=== PATIENT | female | born 1995 | race Caucasian/White ===

== ENCOUNTER 2016-07-14 17:00 | Emergency (ER) | payer MEDICAID, OTHER ==
[~2016-07-14 17:00] MED LIST: AUGM875T27 PO; CIPR500T89 PO; COLA100C PO; FLAG500T PO; PERC5TAB6 PO
[2016-07-14] MEDS ORDERED: AUGMENTIN 875 MG TAB As Ordered ONE (19:47)
[2016-07-14] MEDS ORDERED: TETRACAINE 0.5% OPHTH SOLN 4ML As Ordered ONE (19:47)
[2016-07-14] MEDS ORDERED: FLUORESCEIN OPHTH 1 MG STRIP As Ordered ONE (19:48)
--- NOTE | 2016-07-14 20:07 | EDDOCDS ---
Nurse's Notes [facility] Name: Renée Ponce Age: 20 yrs Sex: Female : 1995 Arrival Date: 07/14/2016 Time: 17:00 Bed I10 / 23 Private MD: Addison Cobb W Diagnosis: Scratched by cat-eight lower eye lid;Injury of conjunctiva and corneal abrasion without foreign body, right eye Presentation: 07/14 17:27 Presenting complaint: Patient states: Right eye irritation, scratched in eye by her dwg mothers cat just prior to arrival. Mechanism of Injury: Cat scratch. The patient denies any loss of vision. Adult Sepsis Screening: The patient does not have new or worsening altered mentation. Patient's respiratory rate is less than 22. Systolic blood pressure is greater than 100. Patient has a qSOFA score of 0- Negative Sepsis Screen. Suicide/Homicide risk assessment- the patient denies having any suicidal and/or homicidal ideations and does not present with any other emotional, behavioral or mental health complaints. Status: Patient is not a family services manager or dependent. Transition of care: patient was not received from another setting of care. 17:27 Acuity: CRESCENCIO Level 4 dw 17:27 Method Of Arrival: Walkin/Carried/[facility]std [facility] Triage Assessment: 17:29 General: Appears in no apparent distress. Pain: Pain currently is 5 out of 10 on a pain dwg scale. HIV screening NA for this visit Offered previously. 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 none - PMHx: none; - PSHx: Tonsillectomy; - Social history: Smoking status: Patient states was never smoker of tobacco. No barriers to communication noted, The patient speaks fluent Georgian. - Family history: Not pertinent. - : The pt / caregiver states he / she is not on anticoagulants. Home medication list is obtained from the patient. - Exposure Risk Screening:: None identified. - Tetanus status: unknown. Screenin:05 Screening information is obtained from the patient. Fall risk: No risks identified. dsf Assistance ADL's: requires no assistance with activities of daily living. Abuse/DV Screen: The patient / caregiver reports he/she is: not in a situation that causes fear, pain or injury. Nutritional screening: No deficits noted. Advance Directives: Currently, there is no health care proxy. home support is adequate. Assessment: 19:52 Adult Sepsis Screening: The patient does not have new or worsening altered mentation. dsf Patient's respiratory rate is less than 22. Systolic blood pressure is greater than 100. Patient has a qSOFA score of 0- Negative Sepsis Screen. General: Appears in no apparent distress, Behavior is appropriate for age, cooperative. Pain: Denies pain. Neurological: Level of Consciousness is awake, alert. EENT: Eyes clear. Sclera/Cornea are clear in right eye lower lid swollen. Respiratory: No deficits noted. Derm: Skin is pink, warm & dry. Vital Signs: 17:01 BP 121 / 73; Pulse 78; Resp 18 S; Temp 97.9(O); Pulse Ox 98% on R/A; Weight 62.6 kg gr2 (R); Height 5 ft. 5 in. (165.10 cm) (R); Pain 2/10; 17:01 Body Mass Index 22.96 (62.60 kg, 165.10 cm) gr2 Vitals: 17:01 Log In Time: July 14, 2016 at 17:01. gr2 ED Course: 17:00 Patient visited by Ever Holley. gr2 17:00 Patient moved to Waiting gr2 17:01 Addison Cobb is Private Physician. gr2 17:03 Patient visited by Ever Holley. gr2 17:03 Patient moved to Pre RCE gr2 17:29 Triage Initiated dwg 19:27 Patient moved to I1 23 sls1 19:36 [facility] le 19:38 Patient visited by Yamileth Gross FNP. le 19:38 Patient visited by Yamileth Gross FNP. le 19:53 Patient visited by Dejah Eckert RN. dsf 19:57 Chaparro Dixon is Referral Physician. le 20:05 No IV's were initiated during this patient's visit. No procedures done that require dsf assistance. 20:06 The patient / caregiver is instructed regarding the plan of care and ED course. dsf Administered Medications: 19:52 Drug: Tetracaine (PF) 2 drps [tetracaine HCl (PF) 0.5 % eye drops (2 drps)] Route: dsf Ophthalmic; Site: right eye; 19:52 Drug: Amoxicillin-Clavulanate 1 tabs [amoxicillin 875 mg-potassium clavulanate 125 mg dsf tablet (1 tabs)] Route: PO; Order Results: There are currently no results for this order. Outcome: 19:57 Discharge ordered by Provider. le 20:06 Discharge Assessment: Patient awake, alert and oriented x 3. No cognitive and/or dsf functional deficits noted. Patient verbalized understanding of disposition instructions. patient administered narcotics - no. The following High Risk Discharge criteria are identified: None. Discharged to home ambulatory. Condition: stable. Discharge instructions given to patient, Instructed on discharge instructions, follow up and referral plans. medication usage, Demonstrated understanding of instructions, medications, Pt was receptive of discharge instructions/ teaching. Prescriptions given X 1. No special radiology studies were completed. Property sent home with patient. 20:06 Patient left the ED. dsf Signatures: Junior Brizuela RN RN Yamileth Amaro FNP FNP le Fuller, DesireeRN RN Dolores Hernandez RN RN sls1 Ever Holley gr2 MTDEugenio
--- NOTE | 2016-07-14 20:07 | EDDOCDS ---
Physician Documentation [facility] Name: Renée Ponce Age: 20 yrs Sex: Female : 1995 Arrival Date: 07/14/2016 Time: 17:00 Bed I10 / 23 Private MD: Addison Cobb W Disposition: 07/14/16 19:57 Discharged to Home/Self Care. Impression: Scratched by cat - eight lower eye lid, Injury of conjunctiva and corneal abrasion without foreign body, right eye. - Condition is Stable. - Discharge Instructions: Corneal Abrasion. - Prescriptions for Augmentin 875- 125 mg Oral Tablet - take 1 tablet by ORAL route every 12 hours for 5 days; 10 tablet. - Medication Reconciliation, Local Pharmacy Hours form. - Follow up: Chaparro Dixon; When: As needed; Reason: Recheck today's complaints, Continuance of care. - Problem is new. - Symptoms have improved. - Notes: Return to the ED for any further concerns Historical: - Allergies: no known allergies; - Home Meds: 1. none - PMHx: none; - PSHx: Tonsillectomy; - Social history: Smoking status: Patient states was never smoker of tobacco. No barriers to communication noted, The patient speaks fluent Spanish. - Family history: Not pertinent. - : The pt / caregiver states he / she is not on anticoagulants. Home medication list is obtained from the patient. - Exposure Risk Screening:: None identified. - Tetanus status: unknown. 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 5 in. (165.10 cm) (R); Pain 2/10; 17:01 Body Mass Index 22.96 (62.60 kg, 165.10 cm) gr2 MDM: 19:39 Tetracaine (PF) Drops 0.5 % 2 drps Ophthalmic once ordered. le 19:39 Flouroscein strips to bedside ordered. le 19:39 Visual Acuity ordered. le 19:44 Amoxicillin-Clavulanate 875 mg 1 tabs PO once ordered. le Administered Medications: 19: Drug: Tetracaine (PF) 2 drps [tetracaine HCl (PF) 0.5 % eye drops (2 drps)] Route: dsf Ophthalmic; Site: right eye; : Drug: Amoxicillin-Clavulanate 1 tabs [amoxicillin 875 mg-potassium clavulanate 125 mg dsf tablet (1 tabs)] Route: PO; Signatures: Junior Brizuela RN RN dwg Westcott, Lisa, SEO EXECUTIVE SEO EXECUTIVE Dejah Corrigan RN RN dsf MTDD
--- NOTE | 2016-07-16 21:07 | EDDOCDS ---
Nurse's Notes [facility] Name: Renée Ponce Age: 20 yrs Sex: Female : 1995 Arrival Date: 07/14/2016 Time: 17:00 Bed I10 / 23 Private MD: Addison Cobb W Diagnosis: Scratched by cat-eight lower eye lid;Injury of conjunctiva and corneal abrasion without foreign body, right eye Presentation: 07/14 17:27 Presenting complaint: Patient states: Right eye irritation, scratched in eye by her dwg mothers cat just prior to arrival. Mechanism of Injury: Cat scratch. The patient denies any loss of vision. Adult Sepsis Screening: The patient does not have new or worsening altered mentation. Patient's respiratory rate is less than 22. Systolic blood pressure is greater than 100. Patient has a qSOFA score of 0- Negative Sepsis Screen. Suicide/Homicide risk assessment- the patient denies having any suicidal and/or homicidal ideations and does not present with any other emotional, behavioral or mental health complaints. Status: Patient is not a consumer services consultant or dependent. Transition of care: patient was not received from another setting of care. 17:27 Acuity: CRESCENCIO Level 4 dw 17:27 Method Of Arrival: Walkin/Carried/Asstd [facility] Triage Assessment: 17:29 General: Appears in no apparent distress. Pain: Pain currently is 5 out of 10 on a pain dwg scale. HIV screening NA for this visit Offered previously. 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 none - PMHx: none; - PSHx: Tonsillectomy; - Social history: Smoking status: Patient states was never smoker of tobacco. No barriers to communication noted, The patient speaks fluent Latvian. - Family history: Not pertinent. - : The pt / caregiver states he / she is not on anticoagulants. Home medication list is obtained from the patient. - Exposure Risk Screening:: None identified. - Tetanus status: unknown. Screenin:05 Screening information is obtained from the patient. Fall risk: No risks identified. dsf Assistance ADL's: requires no assistance with activities of daily living. Abuse/DV Screen: The patient / caregiver reports he/she is: not in a situation that causes fear, pain or injury. Nutritional screening: No deficits noted. Advance Directives: Currently, there is no health care proxy. home support is adequate. Assessment: 19:52 Adult Sepsis Screening: The patient does not have new or worsening altered mentation. dsf Patient's respiratory rate is less than 22. Systolic blood pressure is greater than 100. Patient has a qSOFA score of 0- Negative Sepsis Screen. General: Appears in no apparent distress, Behavior is appropriate for age, cooperative. Pain: Denies pain. Neurological: Level of Consciousness is awake, alert. EENT: Eyes clear. Sclera/Cornea are clear in right eye lower lid swollen. Respiratory: No deficits noted. Derm: Skin is pink, warm & dry. Vital Signs: 17:01 BP 121 / 73; Pulse 78; Resp 18 S; Temp 97.9(O); Pulse Ox 98% on R/A; Weight 62.6 kg gr2 (R); Height 5 ft. 5 in. (165.10 cm) (R); Pain 2/10; 17:01 Body Mass Index 22.96 (62.60 kg, 165.10 cm) gr2 Vitals: 17:01 Log In Time: July 14, 2016 at 17:01. gr2 ED Course: 17:00 Patient visited by Ever Holley. gr2 17:00 Patient moved to Waiting gr2 17:01 Addison Cobb is Private Physician. gr2 17:03 Patient visited by Ever Holley. gr2 17:03 Patient moved to Pre RCE gr2 17:29 Triage Initiated dwg 19:27 Patient moved to I10 23 sls1 19:36 [facility] le 19:38 Patient visited by Yamileth Gross FNP. le 19:38 Patient visited by Yamileth Gross FNP. le 19:53 Patient visited by Dejah Eckert RN. dsf 19:57 Chaparro Dixon is Referral Physician. le 20:05 No IV's were initiated during this patient's visit. No procedures done that require dsf assistance. 20:06 The patient / caregiver is instructed regarding the plan of care and ED course. dsf 20:07 [facility] Payment Agreement was scanned into [employer] and attached to record. hayden 07/15 11:05 T-Sheet-- Draft Copy was scanned into [employer] and attached to record. gb Administered Medications: 07/14 19:52 Drug: Tetracaine (PF) 2 drps [tetracaine HCl (PF) 0.5 % eye drops (2 drps)] Route: dsf Ophthalmic; Site: right eye; 19:52 Drug: Amoxicillin-Clavulanate 1 tabs [amoxicillin 875 mg-potassium clavulanate 125 mg dsf tablet (1 tabs)] Route: PO; Order Results: There are currently no results for this order. Outcome: 19:57 Discharge ordered by Provider. le 20:06 Discharge Assessment: Patient awake, alert and oriented x 3. No cognitive and/or dsf functional deficits noted. Patient verbalized understanding of disposition instructions. patient administered narcotics - no. The following High Risk Discharge criteria are identified: None. Discharged to home ambulatory. Condition: stable. Discharge instructions given to patient, Instructed on discharge instructions, follow up and referral plans. medication usage, Demonstrated understanding of instructions, medications, Pt was receptive of discharge instructions/ teaching. Prescriptions given X 1. No special radiology studies were completed. Property sent home with patient. 20:06 Patient left the ED. dsf Signatures: Junior Brizuela, RN RN dwg Shahana Solis, Reg Reg Yamileth Saldaña, Dejah Tyler RN RN Dolores Hernandez RN RN sls1 Ever Holley gr2 Mady Schultz [facility] Chart Complete MTDD
--- NOTE | 2016-07-16 21:07 | EDDOCDS ---
Physician Documentation [facility] Name: Renée Ponce Age: 20 yrs Sex: Female : 1995 Arrival Date: 07/14/2016 Time: 17:00 Bed I10 / 23 Private MD: Addison Cobb W Disposition: 07/14/16 19:57 Discharged to Home/Self Care. Impression: Scratched by cat - eight lower eye lid, Injury of conjunctiva and corneal abrasion without foreign body, right eye. - Condition is Stable. - Discharge Instructions: Corneal Abrasion. - Prescriptions for Augmentin 875- 125 mg Oral Tablet - take 1 tablet by ORAL route every 12 hours for 5 days; 10 tablet. - Medication Reconciliation, Local Pharmacy Hours form. - Follow up: Chaparro Dixon; When: As needed; Reason: Recheck today's complaints, Continuance of care. - Problem is new. - Symptoms have improved. - Notes: Return to the ED for any further concerns Historical: - Allergies: no known allergies; - Home Meds: 1. none - PMHx: none; - PSHx: Tonsillectomy; - Social history: Smoking status: Patient states was never smoker of tobacco. No barriers to communication noted, The patient speaks fluent Qatari. - Family history: Not pertinent. - : The pt / caregiver states he / she is not on anticoagulants. Home medication list is obtained from the patient. - Exposure Risk Screening:: None identified. - Tetanus status: unknown. 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 5 in. (165.10 cm) (R); Pain 2/10; 17:01 Body Mass Index 22.96 (62.60 kg, 165.10 cm) gr2 MDM: 19:39 Tetracaine (PF) Drops 0.5 % 2 drps Ophthalmic once ordered. le 19:39 Flouroscein strips to bedside ordered. le 19:39 Visual Acuity ordered. le 19:44 Amoxicillin-Clavulanate 875 mg 1 tabs PO once ordered. le 20:07 [facility] Payment Agreement was scanned into [employer] and attached to record. gjjudy 20: Financial registration complete. gjjudy 07/15 11:05 T-Sheet-- Draft Copy was scanned into [employer] and attached to record. gb Administered Medications: 07/14 19:52 Drug: Tetracaine (PF) 2 drps [tetracaine HCl (PF) 0.5 % eye drops (2 drps)] Route: dsf Ophthalmic; Site: right eye; 19:52 Drug: Amoxicillin-Clavulanate 1 tabs [amoxicillin 875 mg-potassium clavulanate 125 mg dsf tablet (1 tabs)] Route: PO; Signatures: Junior Brizuela, RN RN dwShahana Cool, Reg Reg Yamileth Saldaña, Dejah Tyler RN RN Mady Daugherty The chart was reviewed and I authenticate all verbal orders and agree with the evaluation and treatment provided.Attachments: : [facility] Payment Agreement [facility] 07/15 11:05 T-Sheet-- Draft Copy gb Chart Complete MTDD
--- NOTE | 2016-07-16 21:07 | EDDOCDS ---
Physician Documentation [facility] Name: Renée Ponce Age: 20 yrs Sex: Female : 1995 Arrival Date: 07/14/2016 Time: 17:00 Bed I10 / 23 Private MD: Addison Cobb W Disposition: 07/14/16 19:57 Discharged to Home/Self Care. Impression: Scratched by cat - eight lower eye lid, Injury of conjunctiva and corneal abrasion without foreign body, right eye. - Condition is Stable. - Discharge Instructions: Corneal Abrasion. - Prescriptions for Augmentin 875- 125 mg Oral Tablet - take 1 tablet by ORAL route every 12 hours for 5 days; 10 tablet. - Medication Reconciliation, Local Pharmacy Hours form. - Follow up: Chaparro Dixon; When: As needed; Reason: Recheck today's complaints, Continuance of care. - Problem is new. - Symptoms have improved. - Notes: Return to the ED for any further concerns Historical: - Allergies: no known allergies; - Home Meds: 1. none - PMHx: none; - PSHx: Tonsillectomy; - Social history: Smoking status: Patient states was never smoker of tobacco. No barriers to communication noted, The patient speaks fluent Moroccan. - Family history: Not pertinent. - : The pt / caregiver states he / she is not on anticoagulants. Home medication list is obtained from the patient. - Exposure Risk Screening:: None identified. - Tetanus status: unknown. 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 5 in. (165.10 cm) (R); Pain 2/10; 17:01 Body Mass Index 22.96 (62.60 kg, 165.10 cm) gr2 MDM: 19:39 Tetracaine (PF) Drops 0.5 % 2 drps Ophthalmic once ordered. le 19:39 Flouroscein strips to bedside ordered. le 19:39 Visual Acuity ordered. le 19:44 Amoxicillin-Clavulanate 875 mg 1 tabs PO once ordered. le 20:07 [facility] Payment Agreement was scanned into [employer] and attached to record. gjjudy 20: Financial registration complete. gjjudy 07/15 11:05 T-Sheet-- Draft Copy was scanned into [employer] and attached to record. gb Administered Medications: 07/14 19:52 Drug: Tetracaine (PF) 2 drps [tetracaine HCl (PF) 0.5 % eye drops (2 drps)] Route: dsf Ophthalmic; Site: right eye; 19:52 Drug: Amoxicillin-Clavulanate 1 tabs [amoxicillin 875 mg-potassium clavulanate 125 mg dsf tablet (1 tabs)] Route: PO; Signatures: Junior Brizuela, RN RN dwShahana Cool, Reg Reg Yamileth Saldaña, Dejah Tyler RN RN Mady Daugherty The chart was reviewed and I authenticate all verbal orders and agree with the evaluation and treatment provided.Attachments: : [facility] Payment Agreement [facility] 07/15 11:05 T-Sheet-- Draft Copy gb Chart Complete MTDD
== END 2016-07-14 20:06 | disposition home or self-care (01) ==
LOC: M ED 17:00
DX: S05.01XA Injury of conjunctiva and corneal abrasion without foreign body, right eye, initial encounter (principal); W55.03XA Scratched by cat, initial encounter; Y92.019 Unspecified place in single-family (private) house as the place of occurrence of the external cause; Y93.89 Activity, other specified; Y99.8 Other external cause status

== ENCOUNTER → 2016-09-17 | Outpatient (CLI) | payer OTHER, MEDICAID | LOC: M LAB 16:16 → M LABNEURO 16:16 | PROVIDERS: ATTEND Student in an Organized Health Care Education/Training Program | DX: R63.4 Abnormal weight loss (principal) ==

== ENCOUNTER → 2016-11-17 | Outpatient (REF) | payer OTHER, MEDICAID ==
[~2016-11-17] MED LIST changes: -COLA100C PO; +COLA100C3 PO
== END ==
LOC: M LAB REF 11:19
PROVIDERS: ATTEND Physician Assistant Medical
DX: J02.9 Acute pharyngitis, unspecified (principal)

== ENCOUNTER 2016-12-26 19:28 | Emergency (ER) | payer MEDICAID, OTHER ==
[~2016-12-26] VITALS: Ht 165.1 cm; Wt 56.6 kg
[~2016-12-26 19:28] MED LIST changes: -AUGM875T27 PO; +AUGM875T28 PO; +CIPR-249 PO; -CIPR500T89 PO; -COLA100C3 PO; +COLA100C5 PO; +PERC5TAB12 PO; -PERC5TAB6 PO
[2016-12-26] MEDS ORDERED: KETOROLAC 60 MG/2 ML VIAL (J1885) IM ONE (20:00)
--- NOTE | 2016-12-26 20:33 | REP ---
Clinical: Lower back pain . Technique: AP, lateral, bilateral oblique, and coned-down views. Findings: Alignment and lordosis is maintained. The vertebral bodies including transverse process and spinous processes are intact and normal. There is no evidence for acute fracture / compression injury or subluxation. No evidence for spondylolysis or spondylolisthesis. No significant degenerative change is noted. Impression: Normal lumbosacral spine radiograph series. Signed by Rk Rizo MD 12/26/2016 08:24 P
[2016-12-26 20:51] VITALS: BP 117/74
[2016-12-26] MEDS ORDERED: CYCL10TA PO (21:03)
[2016-12-26] MEDS ORDERED: NAPR500T PO (21:03)
== END 2016-12-26 21:11 | disposition home or self-care (01) ==
LOC: M ED 19:28
DX: G89.29 Other chronic pain (principal); M54.5 Low back pain; F17.210 Nicotine dependence, cigarettes, uncomplicated

== ENCOUNTER → 2017-05-13 | Outpatient (REF) | payer OTHER ==
[~2017-05-13] MED LIST changes: +CYCL10TA PO; +NAPR500T PO
[2017-05-13 19:00] LABS: BASO # 0.1 10^3/uL (0.0-0.2); BASO % 0.9 % (0.0-1.0); EOS # 0.2 10^3/uL (0.0-0.50); EOS % 1.4 % (0.0-3.0); IMMATURE GRANULOCYTE % 0.5 % (0-0); LYMPH # 3.3 10^3/uL (1.5-6.5); LYMPH % 30.9 % (24.0-44.0); MEAN CORPUSCULAR HEMOGLOBIN 27.1 pg (27.0-33.0); MEAN CORPUSCULAR HGB CONC 32.2 g/dl (32.0-36.5); MEAN CORPUSCULAR VOLUME 84.1 fl (80.0-96.0); MONO # 1.3 10^3/uL (0.0-0.8); MONO % 12.2 % (0.0-5.0); NEUTROPHILS # 5.7 10^3/uL (1.8-7.7); NEUTROPHILS % 54.1 % (36.0-66.0); RED CELL DISTRIBUTION WIDTH 13.7 % (11.5-14.5); WHITE BLOOD COUNT 10.5 10^3/uL (4.0-10.0)
[2017-05-13 19:19] LABS: ALBUMIN/GLOBULIN RATIO 1.33 (1.00-1.93); ALKALINE PHOSPHATASE 41 U/L (45-117); ALT/SGPT 18 U/L (12-78); ANION GAP 6 MEQ/L (8-16); AST/SGOT 9 U/L (7-37); BILIRUBIN,TOTAL 0.3 MG/DL (0.2-1.0); BLOOD UREA NITROGEN 13 MG/DL (7-18); CALCIUM LEVEL 9.2 MG/DL (8.5-10.1); CARBON DIOXIDE LEVEL 28 MEQ/L (21-32); CHLORIDE LEVEL 106 MEQ/L (98-107); CREATININE FOR GFR 0.88 MG/DL (0.55-1.02); GLOMERULAR FILTRATION RATE > 60.0 (>60); GLUCOSE, FASTING 99 MG/DL (70-105); POTASSIUM SERUM 4.1 MEQ/L (3.5-5.1); SODIUM LEVEL 140 MEQ/L (136-145)
[2017-05-13 21:36] LABS: PLT CLUMPS? POS FLAG; POS COUNT POS FLAG
== END ==
LOC: M SFHCPLAZ 15:26
DX: R10.12 Left upper quadrant pain (principal); R35.0 Frequency of micturition

== ENCOUNTER 2017-11-26 18:01 | Emergency (ER) | payer OTHER | END 2017-11-26 20:17 | disposition home or self-care (01) | LOC: M ED 18:01 | DX: M62.830 Muscle spasm of back (principal); M54.42 Lumbago with sciatica, left side; Z91.81 History of falling; F31.9 Bipolar disorder, unspecified; F17.210 Nicotine dependence, cigarettes, uncomplicated | CPT/HCPCS: 99282 ==

== ENCOUNTER 2018-07-03 02:33 | Emergency (ER) | payer OTHER ==
[~2018-07-03] VITALS: Ht 165.1 cm; Wt 72.7 kg
[~2018-07-03 02:33] MED LIST changes: +IBUP-1022 PO; +NAPR-50 PO; -NAPR500T PO; +ROBA500T PO
[2018-07-03 02:34] VITALS: BP 142/84
[2018-07-03] MEDS ORDERED: KETOROLAC 60 MG/2 ML VIAL (J1885) IM ONE (07:30)
[2018-07-03] MEDS ORDERED: NAPR-50 PO (07:33)
== END 2018-07-03 08:09 | disposition home or self-care (01) ==
LOC: M ED 02:33
DX: S39.012A Strain of muscle, fascia and tendon of lower back, initial encounter (principal); X50.9XXA Other and unspecified overexertion or strenuous movements or postures, initial encounter; Y92.89 Other specified places as the place of occurrence of the external cause; G89.29 Other chronic pain
CPT/HCPCS: 96372; 99282; J1885

== ENCOUNTER 2018-09-12 02:57 | Inpatient (IN) | payer MEDICAID, OTHER ==
[~2018-09-12] VITALS: Ht 165.1 cm; Wt 75.0 kg
[2018-09-12 04:09] LABS: HEMATOCRIT 44.9 % (36.0-47.0); HEMOGLOBIN 14.5 g/dl (12.0-15.5); MEAN CORPUSCULAR HEMOGLOBIN 28.2 pg (27.0-33.0); MEAN CORPUSCULAR HGB CONC 32.3 g/dl (32.0-36.5); MEAN CORPUSCULAR VOLUME 87.4 fl (80.0-96.0); RED BLOOD COUNT 5.14 10^6/uL (4.00-5.40); WHITE BLOOD COUNT 10.5 10^3/uL (4.0-10.0)
[2018-09-12 04:27] LABS: HCG, SERUM QUALITATIVE NEGATIVE (NEGATIVE)
[2018-09-12 04:34] LABS: AMPHETAMINES LEVEL URINE NEGATIVE (NEGATIVE); BARBITURATES URINE NEGATIVE (NEGATIVE); BENZODIAZEPINES URINE NEGATIVE (NEGATIVE); CANNABINOIDS URINE NEGATIVE (NEGATIVE); COCAINE METABOLITE URINE NEGATIVE (NEGATIVE); METHADONE URINE NEGATIVE (NEGATIVE); OPIATES URINE NEGATIVE (NEGATIVE); PHENCYCLIDINE URINE NEGATIVE (NEGATIVE)
[2018-09-12 04:52] LABS: ACETAMINOPHEN LEVEL < 2.0 UG/ML (10.0-30.0); ALBUMIN 4.4 GM/DL (3.2-5.2); ALT/SGPT 35 U/L (12-78); BILIRUBIN,DIRECT 0.1 MG/DL (0.0-0.2); BILIRUBIN,TOTAL 0.3 MG/DL (0.2-1.0); BLOOD UREA NITROGEN 6 MG/DL (7-18); CALCIUM LEVEL 8.7 MG/DL (8.5-10.1); CARBON DIOXIDE LEVEL 30 MEQ/L (21-32); CHLORIDE LEVEL 105 MEQ/L (98-107); CREATININE FOR GFR 0.68 MG/DL (0.55-1.30); ETHYL ALCOHOL (ETHANOL) 0.128 % (0.000-0.010); GLOMERULAR FILTRATION RATE > 60.0 (>60); GLUCOSE, FASTING 110 MG/DL (70-100); POTASSIUM SERUM 4.1 MEQ/L (3.5-5.1); SALICYLATE LEVEL 2.8 MG/DL (5.0-30.0); SODIUM LEVEL 140 MEQ/L (136-145); TOTAL PROTEIN 8.4 GM/DL (6.4-8.2)
[2018-09-12] MEDS ORDERED: MAALOX 30 ML SUSP *UDC PO PRN (14:00)
[2018-09-12] MEDS ORDERED: MOM 30ML SUSPENSION UDC PO PRN (14:00)
[2018-09-12] MEDS ORDERED: traZODone 50 MG TAB PO PRN (14:00)
[2018-09-12 14:28] VITALS: BP 133/95
[2018-09-12] MEDS: ACETAMINOPHEN TAB 650MG DOSE (2X325MG) PO PRN (22:43)
[2018-09-13 06:58] VITALS: BP 132/76
[2018-09-13] MEDS: NICOTINE 21MG/24HR 1 EA TRANSDERMAL TD SCH (09:00)
--- NOTE | 2018-09-13 10:43 | HPEPDOC ---
[facility] Medical History & Physical Date of Admission Sep 12, 2018 History and Physical PCP: [facility] ATTENDING: Dr. Raj Corea HPI: 23yoF admitted to [facility] for unspecified depressive disorder, being medically examined today. No acute medical complaints today. Denies any fevers, chills, weakness, fatigue, WATKINS, CP, SOB, cough, palpitations, abdominal pain, N/V/D or changes in bowel or bladder habits. 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 Well-nourished, well developed. No acute distress. Alert and oriented x 3. Pleasant, interactive. HEENT: Normocephalic, atraumatic. Pupils are equal, round, and reactive to light. Extraocular movements are intact. No nystagmus appreciated. Sclera are nonicteric. Conjunctiva without injection. Nose midline. Nasal turbinates without bogginess. EACs both patent BL. TMs both visualized and camacho with good cone of light, no bulging or erythema. No facial asymmetry. Moist mucous membranes. Dentition fair. Pharynx pink and moist, no cobblestoning. Neck supple, trachea midline. No lymphadenopathy or thyromegaly appreciated. CHEST: Regular rate and rhythm, +S1, +S2 LUNGS: Clear to auscultation bilaterally. No wheezes, rales, or rhonchi. Breathing appears symmetric and easy. Patient is speaking in full sentences. No accessory muscle use. ABD: Round, soft, non-tender, non-distended. +Bowel sounds throughout. No rebound or guarding. No costovertebral angle tenderness. EXT: Pulses 2+ bilaterally dorsalis pedis and radial. No lower extremity edema appreciated. SKIN: [place], dry, warm. Capillary refill <2sec. No rashes. NEURO: Alert and oriented x 3. Cranial nerves III-XII are intact. No focal deficits appreciated. EKG: pending A&P: 23yoF admitted to [facility] for unspecified depressive disorder, 1. Psych. Plan per Psychiatry. Obtain baseline EKG to assure the safety of psychiatric medications as they can prolong the QT interval. 2. Nicotine dependence. Patch available. 3. leukocytosis. Pt is afebrile. Asymptomatic. Recheck CBC in AM. 4. Follow up with PCP on discharge. 5.Tattoo done unprofessionally. 6. Pt declines HIV/Hepatitis screening. 7. Staff member Ruby CORREA present throughout exam. Vital Signs Vital Signs Date Time Temp Pulse Resp B/P (MAP) Pulse Ox O2 Delivery O2 Flow Rate FiO2 09/13/18 06:58 97.9 69 16 132/76 (94) 09/12/18 14:11 97 Room Air Laboratory Data Labs 24H Item Value Date Time White Blood Count 10.5 10^3/uL H 09/12/18 035 Red Blood Count 5.14 10^6/uL 09/12/18 035 Hemoglobin 14.5 g/dl 09/12/18350 Hematocrit 44.9 % 09/12/18350 Mean Corpuscular Volume 87.4 fl 09/12/18350 Mean Corpuscular Hemoglobin 28.2 pg 09/12/18350 Mean Corpuscular Hemoglobin Concent 32.3 g/dl 09/12/18350 Red Cell Distribution Width 14.1 % 09/12/18350 Platelet Count 10^3/uL 09/12/18 035 Nucleated Red Blood Cells % (auto) 0.0 % 09/12/18350 Sodium Level 140 MEQ/L 09/12/18350 Potassium Level 4.1 MEQ/L 09/12/18350 Chloride Level 105 MEQ/L 09/12/18350 Carbon Dioxide Level 30 MEQ/L 09/12/18350 Anion Gap 5 MEQ/L L 09/12/18350 Blood Urea Nitrogen 6 MG/DL L 09/12/18350 Creatinine 0.68 MG/DL 09/12/18350 Glomerular Filtration Rate > 60.0 3/350 Fasting Glucose 110 MG/DL H 09/12/18350 Calcium Level 8.7 MG/DL 09/12/18350 Total Bilirubin 0.3 MG/DL 09/12/18350 Direct Bilirubin 0.1 MG/DL 09/12/18350 Aspartate Amino Transf (AST/SGOT) 22 U/L 09/12/18350 Alanine Aminotransferase (ALT/SGPT) 35 U/L 09/12/18350 Alkaline Phosphatase 92 U/L 09/12/18350 Total Protein 8.4 GM/DL H 09/12/18350 Albumin 4.4 GM/DL 09/12/18350 Albumin/Globulin Ratio 1.10 09/12/18350 Thyroid Stimulating Hormone (TSH) 1.720 uIU/ML 09/12/18350 Human Chorionic Gonadotropin, Qual NEGATIVE 09/12/18350 Salicylates Level 2.8 MG/DL L 09/12/18350 Urine Opiates Screen NEGATIVE 09/12/18350 Urine Methadone Screen NEGATIVE 09/12/18350 Acetaminophen Level < 2.0 UG/ML L 09/12/18350 Urine Barbiturates Screen NEGATIVE 09/12/18350 Urine Phencyclidine Screen NEGATIVE 09/12/18350 Urine Amphetamines Screen NEGATIVE 09/12/18350 Urine Benzodiazepines Screen NEGATIVE 09/12/18350 Urine Cocaine Metabolite Screen NEGATIVE 09/12/18350 Urine Cannabinoids Screen NEGATIVE 09/12/18350 Ethyl Alcohol Level 0.128 % H 09/12/18350 Home Medications No Active Prescriptions or Reported Meds Allergies Coded Allergies: No Known Allergies (Unverified , 05/07/14) Nguyen Boykin Sep 13, 2018 10:43
[2018-09-13] MEDS: FLUTICASONE PROP 0.05% NASAL SPRAY 16 GM (FLONASE) NARES SCH (12:53)
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
[2018-09-13 18:23] VITALS: BP 112/60
[2018-09-13] MEDS: ARIPiprazole 2 MG TAB PO SCH (20:17)
[2018-09-13] MEDS: ACETAMINOPHEN TAB 650MG DOSE (2X325MG) PO PRN (20:17)
--- NOTE | 2018-09-14 01:11 | ECGEPIP ---
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 Electronically Signed On 09-14-2018 1:10:51 EDT by João Jolly
[2018-09-14 06:39] VITALS: BP 135/62
[2018-09-14 06:58] LABS: HEMATOCRIT 43.2 % (36.0-47.0); MEAN CORPUSCULAR HEMOGLOBIN 28.6 pg (27.0-33.0); MEAN CORPUSCULAR HGB CONC 32.4 g/dl (32.0-36.5); MEAN CORPUSCULAR VOLUME 88.3 fl (80.0-96.0); PLATELET COUNT, AUTOMATED 265 10^3/uL (150-450); RED BLOOD COUNT 4.89 10^6/uL (4.00-5.40); WHITE BLOOD COUNT 9.6 10^3/uL (4.0-10.0)
[2018-09-14 07:24] LABS: CHOLESTEROL RISK RATIO 2.946 (<5)
[2018-09-14] MEDS: NICOTINE 21MG/24HR 1 EA TRANSDERMAL TD SCH (08:05)
[2018-09-14] MEDS: FLUTICASONE PROP 0.05% NASAL SPRAY 16 GM (FLONASE) NARES SCH (08:06)
[2018-09-14] MEDS: ARIPiprazole 2 MG TAB PO SCH (08:06)
[2018-09-14] MEDS ORDERED: SERTRALINE HCL 50 MG TAB PO SCH (09:00)
[2018-09-14] MEDS ORDERED: NICO21PAT TD (13:08)
[2018-09-14] MEDS ORDERED: SERT50TA PO (13:08)
[2018-09-14] MEDS ORDERED: ARIP2TAB PO (13:08)
[2018-09-14] MEDS ORDERED: TRAZO50TA PO (13:08)
--- NOTE | 2018-09-14 13:21 | MHDSPDOC ---
[facility] Discharge Summary Discharge Summary DATE OF ADMISSION: Sep 12, 2018 at 13:47 DATE OF DISCHARGE: 09/14/18 DISCHARGE DIAGNOSES: 1. Major Depressive Disorder, single episode, moderate, with anxious distress 2. R/O Persistent depressive disorder 3. Alcohol use disorder REASON FOR ADMISSION: Patient had an argument with her girlfriend, she thought it got out of context, she got really upset and she said that she was going home. She had a couple of drinks with her GF at a local bar because it was [place]. 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 Then, she states that she was sitting in her car, it was all dark, it was quiet, it was nice, she was alone, that's what she wanted. A friend contacted her and she told her she wanted to be left alone at that moment, she needed to be with herself. She says she doesn't know why her friend misinterpreted this and called the Police and told them the patient was suicidal. the patient is adamantly denying feeling suicidal. CONSULTANTS INVOLVED: None TREATMENT AND PROGRESS ON THE UNIT : Patient was admitted yesterday because a friend in [place] called the Police thinking that she was suicidal since she had told her that she wanted to be left alone because she had an argument with her GF at a local bar in this area. She has adamantly denied feeling suicidal or having expressed suicidal thoughts. she says that she has been in therapy, intermittently for almost all her life and she was on different antidepressants but they were not effective therefore she stopped taking them This time she requested to be on a low dose antidepressant and tw decided to start her on Zoloft and a low dose of Abilify, basically as a booster for the antidepressant. The patient's roommate has been contacted and he has expressed that he believes she's not suicidal, she has not expressed suicidal ideation but sometimes he has seen her a little bit "down". She reported that the morning dose of Abilify with Zoloft made her very sleepy, so, tw discontinued the morning Abilify and left her only with the nighttime dose and switched the Zoloft for the nighttime because it was making her sleepy. HOSPITAL COURSE: As above DISCHARGE ASSESSMENT: Patient was not suicidal, not homicidal and not psychotic. she was goal orientated, wanted to go back to work, she says she is going to talk to her GF once she is out of the Unit and she thinks that they will be able to work things up with her. MENTAL STATUS EXAMINATION ON DISCHARGE: General Appearance: well groomed, appears stated age, hospital scubs/clothing Build: average Demeanor: average Eye Contact: average Activity: average Behavior: cooperative Speech: spontaneous, reg/rate,rhythm,volume Mood: euthymic Affect: appropriate Thought Process: logical/linear Thought Content (Delusions): paranoia (very rarely, she says) Thought Content (Other): none reported Thought Content (Aggressive): none reported Perception (Hallucinations): none reported Perception (Other): none reported Cognition (Impairment of): none reported Cognition(Intelligence Est.): average Oriented: Awake, Alert, Oriented times three Insight: fair Judgment: Fair Psychosis: Denies Diagnoses 1. Adjustment disorder with anxious/depressed mood 2. R/O Persistent depressive disorder 3. Alcohol use disorder MEDICATIONS ON DISCHARGE: Scheduled Aripiprazole (Aripiprazole) 2 Mg Tab, 2 MG PO QHS for MOOD, #7 Nicotine (Nicotine Transdermal Syst) 21 Mg/24 Hr Dis, 1 PATCH TD DAILY for NICOTINE WITHDRAWAL, #7 Sertraline Hcl (Sertraline HCl) 50 Mg Tab, 50 MG PO QHS for DEPRESSION, #7 PLAN/FOLLOWUP ARRANGEMENTS: Follow Up Care Education Label * Mental Health Appt 1 * Mental Health [facility] * Established With This Provider No * Therapist MICA HERRERA * Date Sep 16, 2018 * Time 08:00 * Address of Clinic or Practice [address] [place] [address] * * Additional information Please be sure to bring your photo ID and insurance card. Follow Up Care Education Label * Chemical Dependency Appt1 * Additional information [facility] in hours Wednesday - Wednesday 8-[address] [place] [address] [facility] in hours Wednesday -Wednesday [phone] [place] [address] Follow Up Care Education Label * Medical * Medical Follow Up [facility] * Established With This Provider Yes * Therapist EDMUND GIVENS * Date Sep 21, 2018 * Time 15:20 * Address of Clinic or Practice [address] [place] [address] * The amount of time spent in the coordination of care for this patient was approximately 30 minutes. Vital Signs/I&Os Vital Signs Date Time Temp Pulse Resp B/P (MAP) Pulse Ox O2 Delivery O2 Flow Rate FiO2 09/14/18 08:31 Room Air 09/14/18 06:39 98.0 108 18 135/62 (86) 09/12/18 14:11 97 Laboratory Data Labs 24H Laboratory Tests 2 09/14/18 06:25: Nucleated Red Blood Cells % (auto) 0.0, Triglycerides Level 68, LDL Cholesterol 95, Total Cholesterol 165, Non-HDL Cholesterol (LDL + VLDL) 109, Total HDL Cholesterol 56, Cholesterol/HDL Ratio 2.946 CBC/BMP Laboratory Tests 09/14/18 06:25 Red Blood Count 4.89, Mean Corpuscular Volume 88.3, Mean Corpuscular Hemoglobin 28.6, Mean Corpuscular Hemoglobin Concent 32.4, Red Cell Distribution Width 13.7 Medications Scheduled Aripiprazole (Aripiprazole) 2 Mg Tab, 2 MG PO QHS for MOOD, #7 Nicotine (Nicotine Transdermal Syst) 21 Mg/24 Hr Dis, 1 PATCH TD DAILY for NICOTINE WITHDRAWAL, #7 Sertraline Hcl (Sertraline HCl) 50 Mg Tab, 50 MG PO QHS for DEPRESSION, #7 Scheduled PRN Trazodone HCl (Trazodone HCl) 50 Mg Tab, 50 MG PO QHSP PRN for INSOMNIA, #7 Allergies Coded Allergies: No Known Allergies (Unverified , 05/07/14) MARY HEBERT MD Sep 14, 2018 13:21 ABDELRAHMAN JONES PGY-1 Sep 14, 2018 15:17
[2018-09-14] MEDS ORDERED: ARIPiprazole 2 MG TAB PO SCH (21:00)
[2018-09-15] MEDS ORDERED: SERTRALINE HCL 50 MG TAB PO SCH (21:00)
== END 2018-09-14 16:00 | disposition home or self-care (01) | DRG 751 ==
LOC: M ED 02:57 → M ED INP 13:47 → M PSY 14:20
PROVIDERS: ADMIT Psychiatry & Neurology Psychiatry; ATTEND Psychiatry & Neurology Psychiatry
DX: F32.1 Major depressive disorder, single episode, moderate (principal); D72.829 Elevated white blood cell count, unspecified; F10.10 Alcohol abuse, uncomplicated; F41.9 Anxiety disorder, unspecified; F17.200 Nicotine dependence, unspecified, uncomplicated

== ENCOUNTER → 2018-11-04 | Outpatient (REF) | payer MEDICAID, OTHER ==
[~2018-11-04] MED LIST changes: +ARIP1TAB4 PO; -NAPR-50 PO; +NAPR-837 PO; +NICO21PAT TD; +SERT-141 PO; +TRAZO50TA PO
== END ==
LOC: M SFHCPLAZ 12:44
PROVIDERS: ATTEND Nurse Practitioner Family
DX: Z12.4 Encounter for screening for malignant neoplasm of cervix (principal)

== ENCOUNTER 2019-04-13 15:40 | Emergency (ER) | payer MEDICAID, OTHER ==
[~2019-04-13 15:40] MED LIST changes: +TRAZ1TAB10 PO; -TRAZO50TA PO
[2019-04-13] MEDS ORDERED: ACETAMINOPHEN 325 MG TAB PO ONE (16:45)
--- NOTE | 2019-04-13 17:00 | REP ---
Two-view chest: 04/13/2019. Indication: Chest pain. Comparison: 02/27/2014. Findings: The lungs are clear. There is no significant pleural effusion or pneumothorax. The cardiac silhouette and mediastinum are unremarkable. Impression: No acute cardiopulmonary process. Electronically Signed by Osman Siddiqui DO 04/13/2019 04:52 P
[2019-04-13 17:38] VITALS: BP 108/71
--- NOTE | 2019-04-14 19:35 | ECGEPIP ---
[facility] - ED Test Date: 2019-04-13 Pat Name: CARIE BROOKE Department: Room: - Gender: Female Machine Folder: CT : 1995 Requested By: Delia Hampton Order Number: [id number] Reading MD: Delia Hampton Measurements Intervals [place] Rate: 68 P: 35 MT: 138 QRS: 97 QRSD: 92 T: 30 QT: 384 QTc: 411 Interpretive Statements SINUS RHYTHM BORDERLINE RIGHT AXIS DEVIATION DELAYED R WAVE PROGRESSION NONSPECIFIC ST T WAVE CHANGES CW 09/13/[address] T WAVE CHANGES Electronically Signed on 04-14-2019 19:35:26 EDT by Delia Hampton
== END 2019-04-13 18:03 | disposition home or self-care (01) ==
LOC: M ED 15:40
DX: R07.89 Other chest pain (principal); R94.31 Abnormal electrocardiogram [ECG] [EKG]

== ENCOUNTER → 2019-07-21 | Outpatient (CLI) | payer OTHER, MEDICAID ==
[2019-07-21 17:51] LABS: ALBUMIN 4.1 GM/DL (3.2-5.2); ALT/SGPT 32 U/L (12-78); BILIRUBIN,TOTAL 0.4 MG/DL (0.2-1.0); BLOOD UREA NITROGEN 9 MG/DL (7-18); CALCIUM LEVEL 9.1 MG/DL (8.5-10.1); CARBON DIOXIDE LEVEL 27 MEQ/L (21-32); CHLORIDE LEVEL 104 MEQ/L (98-107); CREATININE FOR GFR 0.82 MG/DL (0.55-1.30); GLOMERULAR FILTRATION RATE > 60.0 (>60); GLUCOSE, FASTING 95 MG/DL (70-100); POTASSIUM SERUM 4.1 MEQ/L (3.5-5.1); SODIUM LEVEL 139 MEQ/L (136-145); TOTAL PROTEIN 7.4 GM/DL (6.4-8.2)
== END ==
LOC: M PLALAB 15:45
PROVIDERS: ATTEND Student in an Organized Health Care Education/Training Program
DX: Z00.00 Encounter for general adult medical examination without abnormal findings (principal)

== ENCOUNTER 2019-07-31 09:27 | Emergency (ER) | payer MEDICAID, OTHER ==
[~2019-07-31] VITALS: Ht 165.1 cm; Wt 82.3 kg
[2019-07-31] MEDS ORDERED: LEXA5TAB13 (09:35)
[2019-07-31] MEDS ORDERED: NAPR-885 (09:35)
[2019-07-31] MEDS ORDERED: diphenhydrAMINE INJ 50MG/ML VIAL (J1200) IV ONE (10:15)
[2019-07-31] MEDS ORDERED: FAMOTIDINE INJ 20MG/2ML VIAL (S0028) IVP ONE (10:15)
[2019-07-31] MEDS ORDERED: methylPREDNISolone INJ 125 MG/2 ML VIAL (J2930) IV ONE (10:15)
[2019-07-31 10:18] LABS: BASO # 0.1 10^3/uL (0.0-0.2); BASO % 0.3 % (0.0-1.0); EOS # 0.1 10^3/uL (0.0-0.5); EOS % 0.5 % (0.0-3.0); HEMATOCRIT 46.3 % (36.0-47.0); HEMOGLOBIN 14.8 g/dl (12.0-15.5); LYMPH # 3.7 10^3/uL (1.5-5.0); LYMPH % 20.8 % (24.0-44.0); MEAN CORPUSCULAR HEMOGLOBIN 27.1 pg (27.0-33.0); MEAN CORPUSCULAR VOLUME 84.6 fl (80.0-96.0); MONO # 1.6 10^3/uL (0.0-0.8); MONO % 9.2 % (0.0-5.0); NEUTROPHILS # 12.1 10^3/uL (1.5-8.5); NEUTROPHILS % 68.5 % (36.0-66.0); PLATELET COUNT, AUTOMATED 152 10^3/uL (150-450); RED BLOOD COUNT 5.47 10^6/uL (4.00-5.40); WHITE BLOOD COUNT 17.7 10^3/uL (4.0-10.0)
[2019-07-31 11:24] LABS: INFLUENZA A AMPLIFICATION NEGATIVE (NEGATIVE); INFLUENZA B AMPLIFICATION NEGATIVE (NEGATIVE)
[2019-07-31 11:27] LABS: ALBUMIN 3.9 GM/DL (3.2-5.2); ALT/SGPT 27 U/L (12-78); BILIRUBIN,TOTAL 0.7 MG/DL (0.2-1.0); BLOOD UREA NITROGEN 10 MG/DL (7-18); CALCIUM LEVEL 9.2 MG/DL (8.5-10.1); CARBON DIOXIDE LEVEL 20 MEQ/L (21-32); CHLORIDE LEVEL 104 MEQ/L (98-107); CREATININE FOR GFR 0.81 MG/DL (0.55-1.30); GLOMERULAR FILTRATION RATE > 60.0 (>60); GLUCOSE, FASTING 122 MG/DL (70-100); POTASSIUM SERUM 4.1 MEQ/L (3.5-5.1); SODIUM LEVEL 137 MEQ/L (136-145)
[2019-07-31] MEDS ORDERED: BENA25CA4 PO (12:39)
[2019-07-31] MEDS ORDERED: PRED20TA PO (12:39)
[2019-07-31 12:52] VITALS: BP 92/55
== END 2019-07-31 12:54 | disposition home or self-care (01) ==
LOC: M ED 09:27
DX: K52.9 Noninfective gastroenteritis and colitis, unspecified (principal); T78.40XA Allergy, unspecified, initial encounter; Y92.9 Unspecified place or not applicable; Y93.9 Activity, unspecified; Z79.899 Other long term (current) drug therapy
CPT/HCPCS: 80053; 83605; 85025; 87502; 87880; 96374; 96375; 99283; J1200; J2930

== ENCOUNTER 2019-08-17 02:57 | Emergency (ER) | payer OTHER ==
[~2019-08-17] VITALS: Ht 157.5 cm; Wt 54.5 kg
[~2019-08-17 02:57] MED LIST changes: +BENA25CA4 PO; +LEXA5TAB13; +NAPR-885; +PRED20TA PO
[2019-08-17 03:41] LABS: HEMATOCRIT 42.1 % (36.0-47.0); HEMOGLOBIN 13.6 g/dl (12.0-15.5); MEAN CORPUSCULAR HEMOGLOBIN 27.4 pg (27.0-33.0); MEAN CORPUSCULAR HGB CONC 32.3 g/dl (32.0-36.5); MEAN CORPUSCULAR VOLUME 84.9 fl (80.0-96.0); PLATELET COUNT, AUTOMATED 347 10^3/uL (150-450); RED BLOOD COUNT 4.96 10^6/uL (4.00-5.40); WHITE BLOOD COUNT 11.9 10^3/uL (4.0-10.0)
[2019-08-17 04:02] LABS: AMPHETAMINES LEVEL URINE NEGATIVE (NEGATIVE); BARBITURATES URINE NEGATIVE (NEGATIVE); BENZODIAZEPINES URINE NEGATIVE (NEGATIVE); CANNABINOIDS URINE NEGATIVE (NEGATIVE); COCAINE METABOLITE URINE NEGATIVE (NEGATIVE); METHADONE URINE NEGATIVE (NEGATIVE); OPIATES URINE NEGATIVE (NEGATIVE); PHENCYCLIDINE URINE NEGATIVE (NEGATIVE)
[2019-08-17 04:13] LABS: ACETAMINOPHEN LEVEL < 2.0 UG/ML (10.0-30.0); ALBUMIN 4.1 GM/DL (3.2-5.2); ALT/SGPT 32 U/L (12-78); BILIRUBIN,DIRECT < 0.1 MG/DL (0.0-0.2); BILIRUBIN,TOTAL 0.1 MG/DL (0.2-1.0); BLOOD UREA NITROGEN 5 MG/DL (7-18); CALCIUM LEVEL 8.3 MG/DL (8.5-10.1); CARBON DIOXIDE LEVEL 25 MEQ/L (21-32); CHLORIDE LEVEL 114 MEQ/L (98-107); CREATININE FOR GFR 0.71 MG/DL (0.55-1.30); ETHYL ALCOHOL (ETHANOL) 0.268 % (0.000-0.010); GLOMERULAR FILTRATION RATE > 60.0 (>60); GLUCOSE, FASTING 115 MG/DL (70-100); POTASSIUM SERUM 3.8 MEQ/L (3.5-5.1); SALICYLATE LEVEL 3.2 MG/DL (5.0-30.0); SODIUM LEVEL 145 MEQ/L (136-145)
[2019-08-17 08:30] LABS: HCG, SERUM QUALITATIVE NEGATIVE (NEGATIVE)
[2019-08-17] MEDS: ESCITALOPRAM OXALATE 5MG TABLET (LEXAPRO) PO ONE (10:43)
[2019-08-17 11:14] VITALS: BP 110/82
== END 2019-08-17 11:35 | disposition home or self-care (01) ==
LOC: M ED 02:57
DX: F10.929 Alcohol use, unspecified with intoxication, unspecified (principal); F33.9 Major depressive disorder, recurrent, unspecified
CPT/HCPCS: 36415; 80048; 80076; 80307; 84443; 84703; 85027; 99284; G0480

== ENCOUNTER 2019-09-10 05:13 | Emergency (ER) | payer OTHER ==
[~2019-09-10] VITALS: Ht 165.1 cm; Wt 81.8 kg
[2019-09-10 07:30] VITALS: BP 129/81
[2019-09-10] MEDS ORDERED: TETANUS/DIPHTHERIA TOX ADSORB ADULT 0.5ML SYR/VIAL (90714) IM ONE (07:45)
== END 2019-09-10 07:56 | disposition home or self-care (01) ==
LOC: EDBD 05:13 → M ED 05:13
DX: S01.511A Laceration without foreign body of lip, initial encounter (principal); S06.0X0A Concussion without loss of consciousness, initial encounter; F10.129 Alcohol abuse with intoxication, unspecified; X58.XXXA Exposure to other specified factors, initial encounter; Y92.89 Other specified places as the place of occurrence of the external cause; Y93.9 Activity, unspecified; Y99.9 Unspecified external cause status; F17.200 Nicotine dependence, unspecified, uncomplicated; Z79.899 Other long term (current) drug therapy

== ENCOUNTER 2020-09-10 18:22 | Emergency (ER) | payer OTHER ==
[~2020-09-10] VITALS: Ht 165.1 cm; Wt 90.0 kg
[~2020-09-10 18:22] MED LIST changes: +CYCL-707 PO; -CYCL10TA PO
[2020-09-10] MEDS ORDERED: NS 1,000 ML IV ONE (19:10)
--- NOTE | 2020-09-10 20:16 | ECGEPIP ---
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
[2020-09-10 20:34] LABS: BASO % 0.3 % (0.0-1.0); EOS # 0.1 10^3/uL (0.0-0.5); EOS % 1.1 % (0.0-3.0); HEMATOCRIT 40.1 % (36.0-47.0); HEMOGLOBIN 12.5 g/dl (12.0-15.5); LYMPH # 3.1 10^3/uL (1.5-5.0); LYMPH % 25.6 % (24.0-44.0); MEAN CORPUSCULAR HEMOGLOBIN 26.7 pg (27.0-33.0); MEAN CORPUSCULAR HGB CONC 31.2 g/dl (32.0-36.5); MEAN CORPUSCULAR VOLUME 85.7 fl (80.0-96.0); MONO # 1.3 10^3/uL (0.0-0.8); MONO % 11.2 % (2.0-8.0); NEUTROPHILS # 7.3 10^3/uL (1.5-8.5); NEUTROPHILS % 61.3 % (36.0-66.0); PLATELET COUNT, AUTOMATED 436 10^3/uL (150-450); RED BLOOD COUNT 4.68 10^6/uL (4.00-5.40); WHITE BLOOD COUNT 11.9 10^3/uL (4.0-10.0)
--- NOTE | 2020-09-10 21:00 | REPVR ---
PROCEDURE INFORMATION: Exam: XR Chest Exam date and time: 09/10/2020 8:38 PM Age: 25 years old Clinical indication: Chest pain; Type not specified TECHNIQUE: Imaging protocol: XR of the chest Views: 1 view. COMPARISON: CR Chest, 2 view PA, Lat 02/27/2014 2:44 AM FINDINGS: Lungs: Unremarkable. No consolidation. Pleural spaces: Unremarkable. No pleural effusion. No pneumothorax. Heart/Mediastinum: Unremarkable. No cardiomegaly. Bones/joints: Unremarkable. IMPRESSION: No acute findings. Electronically signed by: Vlad Salomon On 09/10/2020 21:00:09 PM
[2020-09-10 21:06] LABS: CK-MB VALUE MASS < 1.0 NG/ML (<3.6); CPK CREATINE PHOSPHOKINASE 91 U/L (26-192); FREE T4 1.03 NG/DL (0.76-1.46); THYROID STIMULATING HORMONE 0.345 uIU/ML (0.358-3.740); TROPONIN I < 0.02 NG/ML (< 0.10)
[2020-09-10] MEDS ORDERED: ISOVUE-370 76% 100ML VIAL As Ordered ONE (21:17)
--- NOTE | 2020-09-10 21:45 | REPVR ---
PROCEDURE INFORMATION: Exam: CT Angiography Chest With Contrast Exam date and time: 09/10/2020 9:37 PM Age: 25 years old Clinical indication: Chest pain; Additional info: Elev d dimer, chest pain TECHNIQUE: Imaging protocol: Computed tomographic angiography of the chest with contrast. 3D rendering (Not supervised by radiologist): MIP and/or 3D reconstructed images were created by the technologist. Radiation optimization: All CT scans at this facility use at least one of these dose optimization techniques: automated exposure control; mA and/or kV adjustment per patient size (includes targeted exams where dose is matched to clinical indication); or iterative reconstruction. Contrast material: ISOVUE 370; Contrast volume: 75 ml; Contrast route: INTRAVENOUS (IV); COMPARISON: CR PORTABLE CHEST X-RAY 09/10/2020 8:29 PM FINDINGS: Pulmonary arteries: Normal. No pulmonary emboli. Aorta: Unremarkable. No aortic aneurysm. No aortic dissection. Lungs: Unremarkable. No consolidation. No masses. Pleural spaces: Unremarkable. No pneumothorax. No pleural effusion. Heart: Unremarkable. No cardiomegaly. No pericardial effusion. Lymph nodes: Unremarkable. No enlarged lymph nodes. Bones/joints: Unremarkable. No acute fracture. Soft tissues: Unremarkable. IMPRESSION: No acute findings. Electronically signed by: Vlad Salomon On 09/10/2020 21:45:11 PM
[2020-09-10] MEDS ORDERED: NAPR-837 PO (22:04)
[2020-09-10 22:15] VITALS: BP 114/67
== END 2020-09-10 22:26 | disposition home or self-care (01) ==
LOC: M ED 18:22 → EDBD 18:22 → M ED 22:26
DX: R07.89 Other chest pain (principal); I45.19 Other right bundle-branch block; F17.200 Nicotine dependence, unspecified, uncomplicated
CPT/HCPCS: 36415; 71045; 71275; 80047; 82550; 82553; 84439; 84443; 84702; 85025; 85379; 93005; 99284; Q9967

== ENCOUNTER → 2020-09-12 | Outpatient (CLI) | payer OTHER ==
--- NOTE | 2020-09-13 14:21 | SLEEPHOME ---
DATE: 09/12/2020 ORDERED BY: JELLY Ferguson Diagnostic home sleep testing was performed due to concern for the obstructive sleep apnea syndrome in this patient with a history of excessive somnolence, snoring, and nonrestorative sleep. For testing, a nocturnal T3 respiratory monitoring device was used. Continuous record was made of pulse, oxygen saturation, air flow, chest and abdominal strain, and body position. Nine hours and 59 minutes of data were reviewed. There were 8 hours and 49 minutes marked as time in bed. During the interval marked time in bed, there were 84 respiratory events identified of 10 seconds in duration or greater for a respiratory event index of 9.5. The events were primarily obstructive, 20 mixed and central apneas were seen. Baseline pulse rate was 75. Pulse rate ranged 53 to 107. Baseline saturation was 93%. Saturations fell to 81%. Testing was performed in both the supine and nonsupine positions. IMPRESSION: Abnormal home sleep testing with repetitive respiratory events and oxygen desaturations to 81% with a respiratory event index of 9.5 is consistent with the obstructive sleep apnea syndrome. RECOMMENDATION: The patient should be encouraged to undergo a formal sleep evaluation. , Resident Clinic
== END ==
LOC: M SLEEP HO 14:55
PROVIDERS: ATTEND Physician Assistant
DX: R40.0 Somnolence (principal); R06.83 Snoring

== ENCOUNTER → 2021-01-07 | Outpatient (CLI) | payer OTHER ==
--- NOTE | 2021-01-08 14:28 | SLEEPCENT ---
NOCTURNAL POLYSOMNOGRAPHY CPAP TITRATION DATE: 01/07/2021 ORDERED BY: JELLY Ferguson Nocturnal polysomnography was performed for the titration of pressure therapy in this patient with a clinical diagnosis of obstructive sleep apnea, supported by home testing revealing a respiratory event index of 9.5 with oxygen desaturations to 81%. For testing, the patient was fit with a Respironics Meagan View full face mask of medium size was used, 4 cm of water pressure were applied to the circuit, and the lights were extinguished. 7 hours and 56 minutes of data were reviewed. There were 451.5 minutes of sleep identified. Sleep latency was normal at 9.5 minutes. REM latency was normal at 77.5 minutes. Sleep architecture was fairly good. There were four REM cycles. Minor foreign was noted in the mid portion of the study. Overall sleep efficiency was 95.9%. The electrocardiogram showed a sinus rhythm with an average heart rate of 74 beats per minute; rate range 60 to 100. EEG showed normal waveforms for wake and sleep. No focal events were identified. Respiratory events prompted increases in CPAP pressure. Best sleep was seen on a CPAP pressure of +5. There was some minor limb activity in the EMG leads. Limb movement arousal index on this occasion was 4.7. IMPRESSION: Obstructive sleep apnea syndrome (G47.33). RECOMMENDATION: Nightly use of pressure therapy 5 cm of water.
== END ==
LOC: M SLEEP 20:00
PROVIDERS: ATTEND Physician Assistant
DX: G47.33 Obstructive sleep apnea (adult) (pediatric) (principal)

== ENCOUNTER → 2021-03-20 | Outpatient (CLI) | payer OTHER ==
--- NOTE | 2021-03-24 16:31 | SLEEPCENT ---
DATE: 03/20/2021 PROCEDURE: Nocturnal polysomnography and multiple sleep latency test. ORDERED BY: Osman Castillo. Nocturnal polysomnography was performed for retitration of pressure therapy followed by multiple sleep latency testing in this patient with a history of obstructive sleep apnea syndrome, apnea-hypopnea index of 9.5, titrated onto a pressure therapy of 5 cm of water in December 2020. For testing, a [employer]Med Meagan View full face mask of medium size was used. 5 cm of water pressure were applied to the circuit, and the lights were extinguished. 8 hours and 26 minutes of data were reviewed. There were 483.5 minutes of sleep identified. Sleep latency was short at 8.5 minutes. REM latency was somewhat short at 59 minutes. Sleep architecture was good with 4 REM cycles. Overall sleep efficiency was 96.7%. The electrocardiogram showed a sinus rhythm with an average heart rate of 72 beats per minute. EEG showed reasonably normal waveforms for wake and sleep. Respiratory events prompted an increase in CPAP pressure. Best sleep was seen on a CPAP pressure of +7. With some mild limb activity in the EMG leads, limb movement arousal index on this occasional was 4.6. Nocturnal polysomnography was followed by multiple sleep latency testing. Four nap opportunities were offered at 2 hour intervals. Sleep was appreciated on 4 out of 4 nap opportunities, and the mean sleep latency was 4.9 minutes. REM sleep was appreciated on 3 of the 4 nap opportunities. IMPRESSION: 1. Obstructive sleep apnea syndrome (G47.33). 2. Abnormal multiple sleep latency testing with mean sleep latency 4.9 minutes and 3 sleep onset REM periods demonstrated. RECOMMENDATION: Initiation of CPAP at 7 cm of water is optimal to palliate obstructive respiratory events. The short sleep latency and sleep onset REM periods are concerning but should be interpreted with caution in a patient whose CPAP pressure was changed during the preceding night's study. cc: DO AYLIN ERWIN DO
== END ==
LOC: M SLEEP 03-19 20:00
PROVIDERS: ATTEND Physician Assistant
DX: G47.33 Obstructive sleep apnea (adult) (pediatric) (principal)

== ENCOUNTER → 2021-05-05 | Outpatient (CLI) | payer OTHER | LOC: M WUC 15:41 | PROVIDERS: ATTEND Physician Assistant | DX: G47.33 Obstructive sleep apnea (adult) (pediatric) (principal) ==

== ENCOUNTER → 2021-07-06 | Outpatient (REF) | payer OTHER | LOC: M WUC 19:04 | PROVIDERS: ATTEND Nurse Practitioner Family | DX: J06.9 Acute upper respiratory infection, unspecified (principal) ==

== ENCOUNTER → 2021-07-18 | Outpatient (CLI) | payer OTHER ==
[2021-07-18 12:56] LABS: BASO # 0.1 10^3/uL (0.0-0.2); BASO % 0.7 % (0.0-1.0); EOS # 0.1 10^3/uL (0.0-0.5); EOS % 1.3 % (0.0-3.0); HEMATOCRIT 44.8 % (36.0-47.0); HEMOGLOBIN 14.1 g/dl (12.0-15.5); LYMPH # 3.4 10^3/uL (1.5-5.0); LYMPH % 33.3 % (24.0-44.0); MEAN CORPUSCULAR HEMOGLOBIN 26.9 pg (27.0-33.0); MEAN CORPUSCULAR HGB CONC 31.5 g/dl (32.0-36.5); MEAN CORPUSCULAR VOLUME 85.3 fl (80.0-96.0); MONO # 1.2 10^3/uL (0.0-0.8); MONO % 11.5 % (2.0-8.0); NEUTROPHILS # 5.4 10^3/uL (1.5-8.5); NEUTROPHILS % 52.6 % (36.0-66.0); PLATELET COUNT, AUTOMATED 172 10^3/uL (150-450); RED BLOOD COUNT 5.25 10^6/uL (4.00-5.40); WHITE BLOOD COUNT 10.2 10^3/uL (4.0-10.0)
[2021-07-18 13:23] LABS: BLOOD UREA NITROGEN 7 MG/DL (7-18); CALCIUM LEVEL 8.9 MG/DL (8.5-10.1); CARBON DIOXIDE LEVEL 27 MEQ/L (21-32); CHLORIDE LEVEL 107 MEQ/L (98-107); CREATININE FOR GFR 0.77 MG/DL (0.55-1.30); GLOMERULAR FILTRATION RATE > 60.0 (>60); GLUCOSE, FASTING 127 MG/DL (70-100); POTASSIUM SERUM 4.5 MEQ/L (3.5-5.1); SODIUM LEVEL 139 MEQ/L (136-145)
== END ==
LOC: M PLALAB 11:51
PROVIDERS: ATTEND Student in an Organized Health Care Education/Training Program
DX: R09.89 Other specified symptoms and signs involving the circulatory and respiratory systems (principal)

== ENCOUNTER → 2021-11-21 | Outpatient (REF) | payer OTHER | LOC: M SFHCPLAZ 16:58 | PROVIDERS: ATTEND Student in an Organized Health Care Education/Training Program | DX: Z12.4 Encounter for screening for malignant neoplasm of cervix (principal) ==

== ENCOUNTER → 2022-10-28 | Outpatient (CLI) | payer OTHER ==
[2022-10-28 15:18] LABS: ALBUMIN 4.2 G/DL (3.2-5.2); ALKALINE PHOSPHATASE 81 U/L (46-116); ALT/SGPT 25 U/L (7.0-40); AST/SGOT 17 U/L (<34); BILIRUBIN,TOTAL 0.5 MG/DL (0.3-1.2); BLOOD UREA NITROGEN 14 MG/DL (9-23); CALCIUM LEVEL 9.9 MG/DL (8.5-10.1); CARBON DIOXIDE LEVEL 29 MMOL/L (20-31); CHLORIDE LEVEL 102 MMOL/L (98-107); GLOMERULAR FILTRATION RATE > 60.0 (>60); GLUCOSE, FASTING 86 MG/DL (60-100); POTASSIUM SERUM 4.7 MMOL/L (3.5-5.1); SODIUM LEVEL 137 MMOL/L (136-145); TOTAL PROTEIN 7.3 G/DL (5.7-8.2)
[2022-10-28 15:21] LABS: HEMATOCRIT 47.8 % (36.0-47.0); HEMOGLOBIN 15.2 g/dl (12.0-15.5); MEAN CORPUSCULAR HEMOGLOBIN 27.1 pg (27.0-33.0); MEAN CORPUSCULAR HGB CONC 31.8 g/dl (32.0-36.5); MEAN CORPUSCULAR VOLUME 85.4 fl (80.0-96.0); PLATELET COUNT, AUTOMATED 222 10^3/uL (150-450); WHITE BLOOD COUNT 13.5 10^3/uL (4.0-10.0)
== END ==
LOC: M PLALAB 10:54
PROVIDERS: ATTEND Student in an Organized Health Care Education/Training Program
DX: Z13.29 Encounter for screening for other suspected endocrine disorder (principal); F64.0 Transsexualism

== ENCOUNTER 2023-01-17 02:46 | Day surgery (SDC) | payer OTHER ==
[2023-01-17] VITALS (9 sets, daily range): BP systolic 96–106; BP diastolic 52–67; TEMP 96.8–97.8; O2SAT 95–98
[~2023-01-17] VITALS: Ht 165.1 cm; Wt 84.5 kg
[2023-01-17] MEDS ORDERED: TEST200I14 (02:52)
[2023-01-17] MEDS ORDERED: IBUP-1114 (02:52)
[2023-01-17 04:12] LABS: BASO # 0.1 10^3/uL (0.0-0.2); BASO % 0.8 % (0.0-1.0); EOS # 0.4 10^3/uL (0.0-0.5); EOS % 4.5 % (0.0-3.0); HEMATOCRIT 45.4 % (36.0-47.0); LYMPH # 2.5 10^3/uL (1.5-5.0); LYMPH % 29.2 % (24.0-44.0); MEAN CORPUSCULAR VOLUME 84.9 fl (80.0-96.0); MONO # 1.3 10^3/uL (0.0-0.8); MONO % 15.3 % (2.0-8.0); NEUTROPHILS # 4.1 10^3/uL (1.5-8.5); NEUTROPHILS % 49.5 % (36.0-66.0); PLATELET COUNT, AUTOMATED 282 10^3/uL (150-450); RED BLOOD COUNT 5.35 10^6/uL (4.00-5.40); WHITE BLOOD COUNT 8.4 10^3/uL (4.0-10.0)
[2023-01-17 04:42] LABS: LIPASE 29 U/L (12-53)
[2023-01-17 04:45] LABS: ALBUMIN 3.6 G/DL (3.2-5.2); ALKALINE PHOSPHATASE 76 U/L (46-116); ALT/SGPT 19 U/L (7.0-40); AST/SGOT 12 U/L (<34); BILIRUBIN,DIRECT < 0.1 MG/DL (<0.4); BILIRUBIN,TOTAL 0.3 MG/DL (0.3-1.2); BLOOD UREA NITROGEN 9 MG/DL (9-23); CARBON DIOXIDE LEVEL 26 MMOL/L (20-31); CHLORIDE LEVEL 107 MMOL/L (98-107); CREATININE FOR GFR 0.84 MG/DL (0.55-1.30); GLOMERULAR FILTRATION RATE > 60.0 (>60); GLUCOSE, FASTING 113 MG/DL (60-100); POTASSIUM SERUM 4.2 MMOL/L (3.5-5.1); SODIUM LEVEL 140 MMOL/L (136-145); TOTAL PROTEIN 6.8 G/DL (5.7-8.2)
[2023-01-17 04:51] LABS: HCG, SERUM QUALITATIVE NEGATIVE (NEGATIVE)
[2023-01-17] MEDS ORDERED: ISOVUE-370 76% 100ML VIAL As Ordered ONE (06:52)
[2023-01-17] MEDS ORDERED: fentaNYL 100 MCG/2 ML INJECTION As Ordered ONE ×2 (08:16→09:19)
[2023-01-17] MEDS ORDERED: MIDAZOLAM INJ 2MG/2ML VIAL As Ordered ONE (08:16)
[2023-01-17] MEDS ORDERED: LIDOCAINE 2% 100MG/5ML SDV (FOR ANES.) As Ordered ONE (08:16)
[2023-01-17] MEDS ORDERED: propofoL 200 MG/20 ML VIAL As Ordered ONE (08:16)
[2023-01-17] MEDS ORDERED: SUCCINYLCHOLINE 100MG/5ML SYRINGE As Ordered ONE (08:16)
[2023-01-17] MEDS ORDERED: ROCURONIUM BROMIDE 50MG/5ML VIAL As Ordered ONE (08:16)
[2023-01-17] MEDS ORDERED: KETOROLAC 60MG 2ML VIAL As Ordered ONE (08:17)
[2023-01-17] MEDS ORDERED: ONDANSETRON 4MG 2ML VIAL As Ordered ONE (08:17)
[2023-01-17 08:52] LABS: APPEARANCE, URINE CLEAR (CLEAR); BACTERIA, URINE AUTO NEGATIVE (NEGATIVE); BILIRUBIN, URINE AUTO NEGATIVE (NEGATIVE); BLOOD, URINE BLOOD NEGATIVE (NEGATIVE); COLOR, URINE STRAW (YELLOW); GLUCOSE, URINE (UA) AUTO NEGATIVE (NEGATIVE); KETONE, URINE AUTO NEGATIVE (NEGATIVE); LEUKOCYTE ESTERASE, URINE AUTO 2+ (NEGATIVE); NITRITE, URINE AUTO NEGATIVE (NEGATIVE); PROTEIN, URINE AUTO NEGATIVE (NEGATIVE); RBC, URINE AUTO 2 /HPF (0-3); SPECIFIC GRAVITY URINE AUTO 1.049 (1.002-1.035); SQUAMOUS EPITHELIAL CELL UR AU 4 /HPF (0-6); UROBILINOGEN, URINE AUTO 0.2 mg/dL (0.0-2.0); WBC, URINE AUTO 13 /HPF (0-3)
[2023-01-17] MEDS ORDERED: ZOSYN 3.375GM VIAL As Ordered ONE (08:53)
[2023-01-17] MEDS ORDERED: ONDANSETRON 4MG 2ML VIAL IV PRN ×2 (09:00→10:20)
[2023-01-17] MEDS ORDERED: oxyCODONE 5MG TAB PO PRN (09:00)
[2023-01-17] MEDS ORDERED: MEPERIDINE 25 MG/ML 1ML VIAL IV PRN (09:00)
[2023-01-17] MEDS ORDERED: LR 1,000 ML IV SCH (09:00)
[2023-01-17] MEDS ORDERED: fentaNYL 100 MCG/2 ML INJECTION IV PRN (09:00)
[2023-01-17] MEDS ORDERED: ACETAMINOPHEN 1000MG 100ML IV BAG As Ordered ONE (09:08)
[2023-01-17] MEDS ORDERED: SUGAMMADEX SODIUM 500 MG/5 ML VIAL (BRIDION) As Ordered ONE (09:26)
[2023-01-17] MEDS: HYDROMORPHONE HCL 0.5 MG/ 0.5 ML SYRINGE IV PRN ×2 (10:19→10:25)
[2023-01-17] MEDS: KCL 20MEQ IN D5/0.45NS 1000ML 1,000 ML IV SCH ×2 (11:11→20:25)
[2023-01-17] MEDS: PIPERACILLIN/TAZOBACTAM SOD 3.375 GM in D5W MINI-BAG PLUS 50 ML IV SCH ×2 (14:49→21:19)
[2023-01-17] MEDS: KETOROLAC 30 MG/ML 1ML VIAL IV PRN ×2 (15:04→21:20)
[2023-01-17] MEDS: NORCO, ANEXSIA 5/325MG TABLET (HYDROcodone/ACETAMINOPHEN) PO PRN ×2 (17:11→23:23)
[2023-01-17] MEDS: SENOKOT S TAB PO SCH (21:19)
[2023-01-18] MEDS: PIPERACILLIN/TAZOBACTAM SOD 3.375 GM in D5W MINI-BAG PLUS 50 ML IV SCH ×2 (03:37→08:31)
[2023-01-18] MEDS: KETOROLAC 30 MG/ML 1ML VIAL IV PRN ×2 (03:39→10:02)
[2023-01-18 04:00] VITALS: BP 95/50; TEMP 97.7; O2SAT 97
[2023-01-18] MEDS: KCL 20MEQ IN D5/0.45NS 1000ML 1,000 ML IV SCH (05:59)
[2023-01-18 06:10] LABS: HEMATOCRIT 43.5 % (36.0-47.0); HEMOGLOBIN 13.9 g/dl (12.0-15.5); MEAN CORPUSCULAR HEMOGLOBIN 27.7 pg (27.0-33.0); MEAN CORPUSCULAR VOLUME 86.8 fl (80.0-96.0); PLATELET COUNT, AUTOMATED 305 10^3/uL (150-450); RED BLOOD COUNT 5.01 10^6/uL (4.00-5.40); WHITE BLOOD COUNT 12.4 10^3/uL (4.0-10.0)
[2023-01-18 08:30] VITALS: BP 97/54; TEMP 97.1; O2SAT 98
[2023-01-18] MEDS: SENOKOT S TAB PO SCH (08:41)
[2023-01-18] MEDS ORDERED: AMOX875T2 PO (11:23)
[2023-01-18] MEDS ORDERED: HYDR-3715 PO (11:23)
== END 2023-01-18 12:45 | disposition home or self-care (01) ==
LOC: M ED 02:46 → M SDC 08:24 → M PED 10:46 → M SDC 01-18 12:45
PROVIDERS: ATTEND Surgery
DX: K35.80 Unspecified acute appendicitis (principal); F31.9 Bipolar disorder, unspecified; Z79.899 Other long term (current) drug therapy
CPT/HCPCS: 36415; 44970; 80048; 80076; 81001; 83690; 84703; 85025; 85027; 87635; 88304; 96361; 96365; 96366; 96375; 96376; 99285; J0131; J0330; J0665; J1100; J1170; J1885; J2250; J2405; J2543; J3010; Q9967

== ENCOUNTER 2023-01-21 05:17 | Emergency (ER) | payer OTHER ==
[~2023-01-21] VITALS: Ht 165.1 cm; Wt 84.7 kg
[~2023-01-21 05:17] MED LIST changes: +AMOX875T2 PO; +HYDR-3715 PO; +IBUP-1114; +TEST200I14
[2023-01-21] MEDS ORDERED: NS 1,000 ML IV ONE (07:10)
[2023-01-21 07:28] LABS: BASO # 0.1 10^3/uL (0.0-0.2); BASO % 0.7 % (0.0-1.0); EOS # 0.2 10^3/uL (0.0-0.5); EOS % 1.5 % (0.0-3.0); HEMATOCRIT 41.4 % (36.0-47.0); LYMPH # 2.8 10^3/uL (1.5-5.0); LYMPH % 26.8 % (24.0-44.0); MEAN CORPUSCULAR HEMOGLOBIN 27.9 pg (27.0-33.0); MEAN CORPUSCULAR HGB CONC 33.8 g/dl (32.0-36.5); MEAN CORPUSCULAR VOLUME 82.5 fl (80.0-96.0); MONO # 1.2 10^3/uL (0.0-0.8); MONO % 11.6 % (2.0-8.0); NEUTROPHILS # 6.1 10^3/uL (1.5-8.5); NEUTROPHILS % 58.8 % (36.0-66.0); PLATELET COUNT, AUTOMATED 351 10^3/uL (150-450); RED BLOOD COUNT 5.02 10^6/uL (4.00-5.40); WHITE BLOOD COUNT 10.3 10^3/uL (4.0-10.0)
[2023-01-21] MEDS ORDERED: ISOVUE-370 76% 100ML VIAL As Ordered ONE (07:47)
[2023-01-21 07:49] LABS: LIPASE 26 U/L (12-53)
[2023-01-21 07:50] LABS: CK-MB VALUE MASS < 1.0 NG/ML (<3.6)
[2023-01-21 07:51] LABS: ALBUMIN 3.5 G/DL (3.2-5.2); ALKALINE PHOSPHATASE 69 U/L (46-116); ALT/SGPT 22 U/L (7.0-40); AMYLASE 24 U/L (30-118); AST/SGOT 18 U/L (<34); BILIRUBIN,DIRECT 0.1 MG/DL (<0.4); BILIRUBIN,TOTAL 0.4 MG/DL (0.3-1.2); TOTAL PROTEIN 6.6 G/DL (5.7-8.2)
[2023-01-21 07:57] LABS: CPK CREATINE PHOSPHOKINASE 62 U/L (34-145); MB/CK RELATIVE INDEX 1.61 (< OR =4)
[2023-01-21 09:00] LABS: CK-MB VALUE MASS < 1.0 NG/ML (<3.6)
[2023-01-21 09:07] LABS: CPK CREATINE PHOSPHOKINASE 59 U/L (34-145); MB/CK RELATIVE INDEX 1.69 (< OR =4)
[2023-01-21 10:45] VITALS: BP 115/68; TEMP 97.8; O2SAT 100
== END 2023-01-21 10:52 | disposition home or self-care (01) ==
LOC: M ED 05:17
DX: R11.10 Vomiting, unspecified (principal); R06.02 Shortness of breath; F41.9 Anxiety disorder, unspecified; F32.A Depression, unspecified; Z87.891 Personal history of nicotine dependence; F17.290 Nicotine dependence, other tobacco product, uncomplicated; F12.10 Cannabis abuse, uncomplicated
CPT/HCPCS: 71045; 71275; 74177; 80047; 80076; 82150; 82550; 82553; 83690; 83880; 84702; 85025; 87040; 87486; 87581; 87633; 87798; 93005; 93041; 96360; 96361; 99284; Q9967

== ENCOUNTER → 2023-01-26 | Outpatient (CLI) | payer OTHER | LOC: M PLAIMG 15:10 | PROVIDERS: ATTEND Student in an Organized Health Care Education/Training Program | DX: M54.41 Lumbago with sciatica, right side (principal) ==

== ENCOUNTER 2023-02-03 21:53 | Emergency (ER) | payer OTHER ==
[~2023-02-03] VITALS: Ht 165.1 cm; Wt 80.9 kg
[2023-02-03 21:55] VITALS: BP 123/81; TEMP 98.6; O2SAT 96
[2023-02-03] MEDS ORDERED: SERO50TA PO (21:59)
== END 2023-02-04 01:40 | disposition left against medical advice (07) ==
LOC: M ED 21:53
DX: Z53.21 Procedure and treatment not carried out due to patient leaving prior to being seen by health care provider (principal)

== ENCOUNTER 2023-04-20 13:36 | Outpatient (RCR) | payer OTHER ==
[~2023-04-20 13:36] MED LIST changes: +SERO50TA PO
== END 2023-04-27 ==
LOC: M PT 13:36
PROVIDERS: ATTEND Student in an Organized Health Care Education/Training Program
DX: M54.41 Lumbago with sciatica, right side (principal)

== ENCOUNTER 2023-05-25 12:10 | Outpatient (RCR) | payer OTHER | END 2023-05-27 | LOC: M PT 12:10 | PROVIDERS: ATTEND Student in an Organized Health Care Education/Training Program | DX: M54.41 Lumbago with sciatica, right side (principal) ==

== ENCOUNTER 2023-06-01 11:56 | Outpatient (RCR) | payer OTHER | END 2023-06-27 | LOC: M PT 11:56 | PROVIDERS: ATTEND Student in an Organized Health Care Education/Training Program | DX: M54.41 Lumbago with sciatica, right side (principal) ==

== ENCOUNTER → 2023-06-11 | Outpatient (CLI) | payer OTHER ==
[2023-06-11 16:34] LABS: BASO # 0.1 10^3/uL (0.0-0.2); BASO % 0.7 % (0.0-1.0); EOS # 0.1 10^3/uL (0.0-0.5); EOS % 1.2 % (0.0-3.0); HEMATOCRIT 48.3 % (36.0-47.0); HEMOGLOBIN 15.9 g/dl (12.0-15.5); LYMPH % 35.4 % (24.0-44.0); MEAN CORPUSCULAR HGB CONC 32.9 g/dl (32.0-36.5); MEAN CORPUSCULAR VOLUME 88.1 fl (80.0-96.0); MONO # 1.3 10^3/uL (0.0-0.8); MONO % 11.7 % (2.0-8.0); NEUTROPHILS # 5.6 10^3/uL (1.5-8.5); NEUTROPHILS % 49.2 % (36.0-66.0); RED BLOOD COUNT 5.48 10^6/uL (4.00-5.40); WHITE BLOOD COUNT 11.3 10^3/uL (4.0-10.0)
[2023-06-11 17:03] LABS: ALKALINE PHOSPHATASE 78 U/L (46-116); ALT/SGPT 51 U/L (7.0-40); AST/SGOT 41 U/L (<34); BILIRUBIN,TOTAL 0.3 MG/DL (0.3-1.2); BLOOD UREA NITROGEN 11 MG/DL (9-23); CALCIUM LEVEL 9.6 MG/DL (8.5-10.1); CARBON DIOXIDE LEVEL 29 MMOL/L (20-31); CHLORIDE LEVEL 99 MMOL/L (98-107); CREATININE FOR GFR 0.77 MG/DL (0.55-1.30); GLOMERULAR FILTRATION RATE > 60.0 (>60); GLUCOSE, FASTING 87 MG/DL (60-100); POTASSIUM SERUM 4.8 MMOL/L (3.5-5.1); SODIUM LEVEL 136 MMOL/L (136-145); TOTAL PROTEIN 7.4 G/DL (5.7-8.2)
== END ==
LOC: M PLALAB 12:12
PROVIDERS: ATTEND Student in an Organized Health Care Education/Training Program
DX: F64.9 Gender identity disorder, unspecified (principal)

== ENCOUNTER → 2023-07-26 | Outpatient (CLI) | payer OTHER ==
[~2023-07-26] MED LIST changes: +E-Z-GAS II EFFERVESCENT PACKET (SODIUM BICARB./CITRIC ACID/SIMETHICONE) As Ordered ONE; +E-Z-HD 98% w/w 340GM SUSP BTL As Ordered ONE; +E-Z-PAQUE 96% w/w SUSP 176GM BTL As Ordered ONE
== END ==
LOC: M RAD 08:40
PROVIDERS: ATTEND Student in an Organized Health Care Education/Training Program
DX: R13.13 Dysphagia, pharyngeal phase (principal); K21.9 Gastro-esophageal reflux disease without esophagitis; R93.3 Abnormal findings on diagnostic imaging of other parts of digestive tract

== ENCOUNTER 2023-09-22 17:40 | Emergency (ER) | payer MEDICAID, OTHER ==
[~2023-09-22 17:40] MED LIST changes: -E-Z-GAS II EFFERVESCENT PACKET (SODIUM BICARB./CITRIC ACID/SIMETHICONE) As Ordered ONE; -E-Z-HD 98% w/w 340GM SUSP BTL As Ordered ONE; -E-Z-PAQUE 96% w/w SUSP 176GM BTL As Ordered ONE
[2023-09-22] MEDS: clonazePAM 0.5 MG TAB PO ONE (20:20)
[2023-09-22 20:50] LABS: HEMATOCRIT 49.1 % (36.0-47.0); HEMOGLOBIN 16.9 g/dl (12.0-15.5); MEAN CORPUSCULAR HGB CONC 34.4 g/dl (32.0-36.5); MEAN CORPUSCULAR VOLUME 87.2 fl (80.0-96.0); PLATELET COUNT, AUTOMATED 287 10^3/uL (150-450); RED BLOOD COUNT 5.63 10^6/uL (4.00-5.40); WHITE BLOOD COUNT 10.7 10^3/uL (4.0-10.0)
[2023-09-22 21:14] LABS: AMPHETAMINES LEVEL URINE NEGATIVE (NEGATIVE); BARBITURATES URINE NEGATIVE (NEGATIVE); BENZODIAZEPINES URINE NEGATIVE (NEGATIVE); CANNABINOIDS URINE NEGATIVE (NEGATIVE); COCAINE METABOLITE URINE NEGATIVE (NEGATIVE); METHADONE URINE NEGATIVE (NEGATIVE); OPIATES URINE NEGATIVE (NEGATIVE); PHENCYCLIDINE URINE NEGATIVE (NEGATIVE)
[2023-09-22 21:17] LABS: ETHYL ALCOHOL (ETHANOL) < 0.003 % (0.000-0.010)
[2023-09-22 21:19] LABS: ALBUMIN 4.1 G/DL (3.2-5.2); ALKALINE PHOSPHATASE 68 U/L (46-116); ALT/SGPT 73 U/L (7.0-40); AST/SGOT 51 U/L (<34); BILIRUBIN,DIRECT 0.4 MG/DL (<0.4); BILIRUBIN,TOTAL 1.2 MG/DL (0.3-1.2); BLOOD UREA NITROGEN 6 MG/DL (9-23); CALCIUM LEVEL 9.8 MG/DL (8.5-10.1); CARBON DIOXIDE LEVEL 26 MMOL/L (20-31); CHLORIDE LEVEL 103 MMOL/L (98-107); CREATININE FOR GFR 0.83 MG/DL (0.55-1.30); GLOMERULAR FILTRATION RATE > 60.0 (>60); GLUCOSE, FASTING 102 MG/DL (60-100); MAGNESIUM LEVEL 1.8 MG/DL (1.8-2.4); POTASSIUM SERUM 3.7 MMOL/L (3.5-5.1); SALICYLATE LEVEL < 3.0 MG/DL (<30); SODIUM LEVEL 137 MMOL/L (136-145); TOTAL PROTEIN 7.3 G/DL (5.7-8.2)
[2023-09-22 22:51] VITALS: BP 138/92; TEMP 97.9; O2SAT 99
== END 2023-09-22 22:58 | disposition home or self-care (01) ==
LOC: M ED 17:40
DX: R00.2 Palpitations (principal); R06.4 Hyperventilation; F41.0 Panic disorder [episodic paroxysmal anxiety]; F17.290 Nicotine dependence, other tobacco product, uncomplicated; Z79.899 Other long term (current) drug therapy

== ENCOUNTER → 2023-10-28 | Outpatient (CLI) | payer OTHER ==
[2023-10-28 18:00] LABS: HEMATOCRIT 51.2 % (36.0-47.0); HEMOGLOBIN 17.1 g/dl (12.0-15.5); MEAN CORPUSCULAR HEMOGLOBIN 29.5 pg (27.0-33.0); MEAN CORPUSCULAR HGB CONC 33.4 g/dl (32.0-36.5); MEAN CORPUSCULAR VOLUME 88.3 fl (80.0-96.0); PLATELET COUNT, AUTOMATED 182 10^3/uL (150-450); WHITE BLOOD COUNT 10.9 10^3/uL (4.0-10.0)
[2023-10-28 18:22] LABS: ALBUMIN 3.6 G/DL (3.2-5.2); ALKALINE PHOSPHATASE 70 U/L (46-116); ALT/SGPT 35 U/L (7.0-40); AST/SGOT 21 U/L (<34); BILIRUBIN,TOTAL 0.9 MG/DL (0.3-1.2); BLOOD UREA NITROGEN 10 MG/DL (9-23); CALCIUM LEVEL 9.7 MG/DL (8.5-10.1); CARBON DIOXIDE LEVEL 28 MMOL/L (20-31); CHLORIDE LEVEL 101 MMOL/L (98-107); CREATININE FOR GFR 0.99 MG/DL (0.55-1.30); GLOMERULAR FILTRATION RATE > 60.0 (>60); GLUCOSE, FASTING 97 MG/DL (60-100); POTASSIUM SERUM 4.8 MMOL/L (3.5-5.1); SODIUM LEVEL 138 MMOL/L (136-145); TOTAL PROTEIN 7.2 G/DL (5.7-8.2)
== END ==
LOC: M PLALAB 15:38
PROVIDERS: ATTEND Student in an Organized Health Care Education/Training Program
DX: F64.9 Gender identity disorder, unspecified (principal)

== ENCOUNTER → 2023-11-02 | Outpatient (CLI) | payer OTHER ==
[~2023-11-02] MED LIST changes: +ACET-683 PO; +ADDE1TAB20 PO; +CLON0.5T17 PO; +PROP40TA62 PO; +SERO1TAB3 PO
[2023-11-02 14:18] LABS: HEMATOCRIT 50.3 % (36.0-47.0); HEMOGLOBIN 16.6 g/dl (12.0-15.5); MEAN CORPUSCULAR HEMOGLOBIN 29.1 pg (27.0-33.0); MEAN CORPUSCULAR VOLUME 88.2 fl (80.0-96.0); WHITE BLOOD COUNT 10.9 10^3/uL (4.0-10.0)
== END ==
LOC: M PLALAB 10:53
PROVIDERS: ATTEND Student in an Organized Health Care Education/Training Program
DX: D58.2 Other hemoglobinopathies (principal)

== ENCOUNTER 2023-11-09 05:56 | Observation (INO) | payer OTHER ==
[2023-11-09] VITALS (7 sets, daily range): BP systolic 109–112; BP diastolic 63–67; TEMP 97.7–98.6; O2SAT 95–97
[~2023-11-09] VITALS: Ht 165.1 cm; Wt 88.8 kg
[~2023-11-09 05:56] MED LIST changes: +MUPI2OI NARES
[2023-11-09] MEDS ORDERED: ROCURONIUM BROMIDE 50MG/5ML VIAL As Ordered ONE (07:02)
[2023-11-09] MEDS ORDERED: ONDANSETRON 4MG 2ML VIAL As Ordered ONE (07:02)
[2023-11-09] MEDS ORDERED: fentaNYL 100 MCG/2 ML INJECTION As Ordered ONE (07:02)
[2023-11-09] MEDS ORDERED: SUGAMMADEX SODIUM 500 MG/5 ML VIAL (BRIDION) As Ordered ONE (07:02)
[2023-11-09] MEDS ORDERED: LIDOCAINE 2% 100MG/5ML SDV (FOR ANES.) As Ordered ONE (07:02)
[2023-11-09] MEDS ORDERED: MIDAZOLAM INJ 2MG/2ML VIAL As Ordered ONE (07:02)
[2023-11-09] MEDS ORDERED: dexmedeTOMIDine (4MCG/ML)200MCG/50ML BTL (PRECEDEX) As Ordered ONE (07:02)
[2023-11-09] MEDS ORDERED: propofoL 200 MG/20 ML VIAL As Ordered ONE (07:02)
[2023-11-09] MEDS ORDERED: KETAMINE HCL 200MG/20ML VIAL As Ordered ONE (07:04)
[2023-11-09] MEDS: ceFAZolin SOD 2 GM in IV 1 EA IV ONE (07:52)
[2023-11-09] MEDS ORDERED: GLYCOPYRROLATE INJ 0.2 MG/ML 2 ML VIAL As Ordered ONE (07:57)
[2023-11-09] MEDS: HEPARIN SOD (PORCINE) 5000UNITS/ML 1ML VIAL/SYRINGE SQ ONE (07:58)
[2023-11-09] MEDS ORDERED: ACETAMINOPHEN 1000MG 100ML IV BAG As Ordered ONE (08:11)
[2023-11-09] MEDS: GENTAMICIN SULF 80MG/2ML VIAL As Ordered ONE (08:16)
[2023-11-09] MEDS ORDERED: ePHEDrine SULFATE 25 MG/5 ML(5MG/ML) SYRINGE As Ordered ONE (09:19)
[2023-11-09] MEDS ORDERED: PHENYLephrine 500MCG 5ML (100MCG/ML) SYRINGE As Ordered ONE (09:19)
[2023-11-09] MEDS ORDERED: HYDROmorphone HCL 2MG/ML 1ML VIAL As Ordered ONE (09:30)
[2023-11-09] MEDS ORDERED: ALBUTEROL 6.7GM INHALER **FOR ANES. CART/OMNICELL ONLY As Ordered ONE (09:45)
[2023-11-09] MEDS: ceFAZolin 2 GM/D5W 50 ML IV BAG As Ordered ONE (11:00)
[2023-11-09] MEDS ORDERED: ONDANSETRON 4MG 2ML VIAL IV PRN (12:25)
[2023-11-09] MEDS ORDERED: ACETAMINOPHEN TAB 650MG DOSE (2X325MG) PO PRN (12:25)
[2023-11-09] MEDS ORDERED: oxyCODONE 5MG TAB PO PRN (12:50)
[2023-11-09] MEDS ORDERED: fentaNYL 100 MCG/2 ML INJECTION IV PRN (12:50)
[2023-11-09] MEDS ORDERED: MORPHINE 2 MG/ML 1ML VIAL IV PRN (12:50)
[2023-11-09] MEDS: traMADol 50 MG TAB PO PRN (12:50)
[2023-11-09] MEDS: ONDANSETRON 4MG 2ML VIAL IV PRN (12:59)
[2023-11-09] MEDS: LR 1,000 ML IV SCH ×2 (13:40→19:52)
[2023-11-09] MEDS: PERCOCET 5MG/325MG TAB PO PRN (16:02)
[2023-11-09] MEDS: ceFAZolin SOD 1 GM in D5W MINI-BAG PLUS 50 ML IV SCH (16:02)
[2023-11-09] MEDS: HEPARIN SOD (PORCINE) 5000UNITS/ML 1ML VIAL/SYRINGE SQ SCH (20:09)
[2023-11-09] MEDS: PROPRANOLOL 20 MG TAB PO SCH (23:13)
[2023-11-10 02:45] VITALS: BP 95/58; TEMP 99; O2SAT 97
[2023-11-10 06:45] VITALS: BP 116/71; TEMP 98.4; O2SAT 96
[2023-11-10 09:00] VITALS: BP 104/53
[2023-11-10] MEDS ORDERED: CLON0.5T2 PO (09:55)
[2023-11-10] MEDS ORDERED: AMPH1TAB2 PO (09:55)
[2023-11-10] MEDS ORDERED: HOME MED LIST COMPLETE! XX SCH (09:55)
[2023-11-10] MEDS ORDERED: TEST200I14 INJ (09:55)
[2023-11-10 10:09] VITALS: BP 103/53; TEMP 98.1; O2SAT 97
[2023-11-10 14:00] VITALS: BP 103/56; TEMP 98.1; O2SAT 96
[2023-11-10] MEDS ORDERED: PERCOCET PO (15:01)
== END 2023-11-10 16:00 | disposition home or self-care (01) ==
LOC: M SDC 05:56 → M RR INP 05:59 → M MS5PR 13:25
PROVIDERS: ADMIT Plastic Surgery Surgery of the Hand; ATTEND Plastic Surgery Surgery of the Hand
DX: N62 Hypertrophy of breast (principal); F64.9 Gender identity disorder, unspecified; Z91.018 Allergy to other foods
CPT/HCPCS: 19318; 81025; 88305; 96365; 96366; 96372; C9290; J0131; J0665; J0690; J1100; J1170; J1580; J2250; J2371; J2405; J3010

== ENCOUNTER → 2024-08-25 | Outpatient (CLI) | payer OTHER ==
[~2024-08-25] MED LIST changes: +AMPH1TAB2 PO; +CLON0.5T2 PO; +PERCOCET PO; +TEST200I14 INJ
== END ==
LOC: M WHC 14:00
PROVIDERS: ATTEND Student in an Organized Health Care Education/Training Program
DX: R04.1 Hemorrhage from throat (principal)

== ENCOUNTER → 2024-09-21 | Outpatient (CLI) | payer MEDICAID, OTHER ==
[2024-09-21 17:05] LABS: BASO # 0.1 10^3/uL (0.0-0.2); BASO % 1.2 % (0.0-1.0); EOS # 0.1 10^3/uL (0.0-0.5); HEMATOCRIT 45.5 % (36.0-47.0); HEMOGLOBIN 15.2 g/dl (12.0-15.5); LYMPH # 2.7 10^3/uL (1.5-5.0); LYMPH % 31.4 % (24.0-44.0); MEAN CORPUSCULAR HEMOGLOBIN 30.1 pg (27.0-33.0); MEAN CORPUSCULAR HGB CONC 33.4 g/dl (32.0-36.5); MEAN CORPUSCULAR VOLUME 90.1 fl (80.0-96.0); MONO # 1.3 10^3/uL (0.0-0.8); MONO % 15.1 % (2.0-8.0); NEUTROPHILS # 4.4 10^3/uL (1.5-8.5); PLATELET COUNT, AUTOMATED 249 10^3/uL (150-450); RED BLOOD COUNT 5.05 10^6/uL (4.00-5.40); WHITE BLOOD COUNT 8.7 10^3/uL (4.0-10.0)
[2024-09-21 17:09] LABS: FREE T4 1.05 NG/DL (0.89-1.76); THYROID STIMULATING HORMONE 0.804 uIU/ML (0.55-4.78)
== END ==
LOC: M PLALAB 14:57
PROVIDERS: ATTEND Student in an Organized Health Care Education/Training Program
DX: R00.2 Palpitations (principal)

== ENCOUNTER 2024-10-01 11:27 | Emergency (ER) | payer OTHER ==
[~2024-10-01] VITALS: Ht 165.1 cm; Wt 75.7 kg
[2024-10-01 12:30] LABS: BASO # 0.1 10^3/uL (0.0-0.2); BASO % 1.3 % (0.0-1.0); EOS # 0.1 10^3/uL (0.0-0.5); EOS % 0.7 % (0.0-3.0); HEMATOCRIT 45.7 % (36.0-47.0); HEMOGLOBIN 15.5 g/dl (12.0-15.5); LYMPH # 2.4 10^3/uL (1.5-5.0); LYMPH % 33.7 % (24.0-44.0); MEAN CORPUSCULAR HEMOGLOBIN 29.5 pg (27.0-33.0); MEAN CORPUSCULAR HGB CONC 33.9 g/dl (32.0-36.5); MONO # 0.8 10^3/uL (0.0-0.8); MONO % 11.2 % (2.0-8.0); NEUTROPHILS # 3.7 10^3/uL (1.5-8.5); NEUTROPHILS % 52.8 % (36.0-66.0); PLATELET COUNT, AUTOMATED 149 10^3/uL (150-450); RED BLOOD COUNT 5.25 10^6/uL (4.00-5.40)
[2024-10-01 12:35] LABS: LIPASE 29 U/L (12-53)
[2024-10-01 12:37] LABS: ALBUMIN 3.9 G/DL (3.2-5.2); ALKALINE PHOSPHATASE 75 U/L (35-104); ALT/SGPT 28 U/L (7.0-40); AST/SGOT 26 U/L (<34); BILIRUBIN,DIRECT 0.1 MG/DL (<0.4); BILIRUBIN,TOTAL 0.4 MG/DL (0.3-1.2); BLOOD UREA NITROGEN 6 MG/DL (9-23); CALCIUM LEVEL 9.3 MG/DL (8.5-10.1); CARBON DIOXIDE LEVEL 23 MMOL/L (20-31); CHLORIDE LEVEL 104 MMOL/L (98-107); CREATININE FOR GFR 0.71 MG/DL (0.55-1.30); GLOMERULAR FILTRATION RATE > 60.0 (>60); GLUCOSE, FASTING 87 MG/DL (60-100); MAGNESIUM LEVEL 1.8 MG/DL (1.8-2.4); POTASSIUM SERUM 4.2 MMOL/L (3.5-5.1); SODIUM LEVEL 138 MMOL/L (136-145); TOTAL PROTEIN 7.5 G/DL (5.7-8.2)
[2024-10-01 12:39] LABS: FREE T4 1.13 NG/DL (0.89-1.76); THYROID STIMULATING HORMONE 0.796 uIU/ML (0.55-4.78)
[2024-10-01 13:42] VITALS: O2SAT 99
[2024-10-01 13:45] VITALS: BP 119/75
[2024-10-01 13:46] VITALS: TEMP 98.6
== END 2024-10-01 14:25 | disposition home or self-care (01) ==
LOC: EDBD 11:27 → M ED 11:27
DX: R00.2 Palpitations (principal); R94.31 Abnormal electrocardiogram [ECG] [EKG]

== ENCOUNTER → 2024-10-16 | Outpatient (CLI) | payer OTHER | LOC: M PLAIMG 12:29 | PROVIDERS: ATTEND Student in an Organized Health Care Education/Training Program | DX: I49.1 Atrial premature depolarization (principal) ==

== ENCOUNTER → 2024-10-28 | Outpatient (CLI) | payer OTHER | LOC: M RAD 13:14 | PROVIDERS: ATTEND Physician Assistant Medical | DX: M25.531 Pain in right wrist (principal) ==